=== PATIENT | female | born 1960 | race Two or more races ===

== ENCOUNTER 2022-10-05 22:59 | Inpatient (IN) | payer OTHER ==
[~2022-10-05] VITALS: Ht 157.5 cm; Wt 55.3 kg
--- NOTE | 2022-10-05 23:10 | NUR ---
COVID SWAB COLLECTED
[2022-10-05] MEDS ORDERED: ALBUTEROL FS 2.5 MG/3 ML VIAL.NEB ONE ×2 (23:12→23:21)
[2022-10-05] MEDS ORDERED: IPRATROPIUM NEB FS 0.5 MG/2.5 ML AMPUL.NEB ONE ×2 (23:12→23:21)
--- NOTE | 2022-10-05 23:13 | NUR ---
PT KAN; TAKEN OFF HOSPICE. C/O SOB SAT IN MID 70S. PLACED IN BED 8 ON WASTE SALVAGER AND PULSE OX. ESTABLISHED 22G RH, BLOOD WORK COLLECTED, SENT TO LAB. AT BEDSIDE. PT PLACED ON BIPAP. FLUIDS INITIATED. COOLING MEASURES INITIATED DUE TO TEMP 104. WILL RECHECK TEMP SOON. DAUGHTER SPOKE TO PT REGARDING PLAN OF CARE. PT WILL BE DNR/DNI. AWAITING FURTHER ORDERS.
--- NOTE | 2022-10-05 23:18 | NUR ---
FLU SWAB COLLECTED
[2022-10-05] MEDS ORDERED: methylPREDNISolone SOD SUCC 125 MG/2ML VIAL ONE (23:19)
[2022-10-05] MEDS ORDERED: IV LR 1000 ML 1,000 ML BAG IV ONE (23:30)
[2022-10-05] MEDS ORDERED: ALBUTEROL FS 2.5 MG/3 ML VIAL.NEB CONTNEB ONE (23:30)
[2022-10-05] MEDS ORDERED: ACETAMINOPHEN 650 MG/SUPP.RECT RC ONE ×2 (23:30)
[2022-10-05] MEDS ORDERED: IPRATROPIUM NEB FS 0.5 MG/2.5 ML AMPUL.NEB NEB ONE (23:30)
[2022-10-05] MEDS ORDERED: PIPERACILLIN /TAZOBACTAM 3.375 G in IV D5W 50 ML IV ONE (23:30)
[2022-10-05] MEDS ORDERED: methylPREDNISolone SOD SUCC 125 MG/2ML VIAL IV ONE (23:30)
[2022-10-05] MEDS ORDERED: PIPERACILLIN /TAZOBACTAM 3.375 G VIAL IV ONE (23:56)
--- NOTE | 2022-10-05 23:58 | NUR ---
RT NOTE PT BROUGHT IN FOR SOB AND HYPOXIA. PT WAS CONGESTED. PT SX'D AND PLACED ON BIPAP 01/02 100% RR 24. CONT NEB GIVEN. PT IS DNR/DNI. Addendum: 10/06/22 at 0000 by NAJMA KENDRICK RT Amended: Links added.
[2022-10-06 00:13] LABS: BILIRUBIN,URINE NEGATIVE (NEGATIVE); COLOR,URINE YELLOW (YELLOW); LEUKOCYTE ESTERASE ,URINE 3+ (NEGATIVE); NITRITE, URINE NEGATIVE (NEGATIVE); PROTEIN,URINE 2+ mg/dl (NEGATIVE); UGLUCOSE NEGATIVE (NEGATIVE); UROBILINOGEN,URINE 0.2 EU/dL (0.2)
[2022-10-06 00:30] LABS: BASOPHILS % (AUTO) 0.1 % (0.0-2.0); MEAN CORPUSCULAR VOLUME 94 fL (82-100)
[2022-10-06 00:32] LABS: EOSINOPHILS % (AUTO) 0.1 % (0.0-6.0); HEMATOCRIT 31 % (33-45); HEMOGLOBIN 9.4 g/dL (11.5-14.8); LYMPHOCYTES # (AUTO) 1.4 K/uL (0.8-4.8); LYMPHOCYTES % (AUTO) 12.7 % (20.0-44.0); MEAN CORPUSCULAR HGB CONC 31 g/dl (31.0-36.0); MONOCYTES # (AUTO) 0.8 K/uL (0.1-1.30); NEUTROPHILS # (AUTO) 8.9 K/uL (1.8-8.9); NEUTROPHILS % (AUTO) 80.1 % (43.0-81.0); PLATELET COUNT (AUTO) 175 K/uL (150-450); WHITE BLOOD COUNT (AUTO) 11.1 K/uL (4.3-11.0)
[2022-10-06 00:44] LABS: ALANINE AMINOTRANSFERASE 23 U/L (12-78); ALBUMIN 2.5 g/dL (3.4-5.0); ALKALINE PHOSPHATASE 109 U/L (46-116); ASPARTATE AMINOTRANSFERASE 56 U/L (15-37); BILIRUBIN,DIRECT 0.2 mg/dL (0.0-0.2); BILIRUBIN,TOTAL 0.4 mg/dL (0.2-1.0); CALCIUM, SERUM 11.2 mg/dL (8.5-10.1); CARBON DIOXIDE 21 mmol/L (21-32); CHLORIDE 109 mmol/L (98-107); CREATININE 2.1 mg/dL (0.6-1.3); GLUCOSE 161 mg/dL (74-106); POTASSIUM 5.4 mmol/L (3.5-5.1); SODIUM SERUM 144 mmol/L (136-145); TOTAL PROTEIN, SERUM 7.9 g/dL (6.4-8.2)
[2022-10-06 00:48] LABS: UREA NITROGEN, BLOOD 84 mg/dL (7-18)
[2022-10-06 01:02] LABS: BACTERIA,URINE Many /HPF (None Seen); SQUAMOUS EPITHELIAL CELL,UR Few /HPF (None Seen); WBC,URINE 21-50 /HPF (0-3)
[2022-10-06 01:21] LABS: ABG BASE EXCESS -4.2 mmol/L; ABG OXYGEN SATURATION 97.9 % (92.0-98.5); ABG PCO2 27.5 mmHg (35.0-45.0); ABG PH 7.451 (7.350-7.450); ABG PO2 114.1 mmHg (75.0-100.0); AaDO2 571.4 mmHg; COHb 0.3 % (0.5-1.5); MetHb 0.3 % (0.0-1.5); O2Hb 97.3 % (94.0-97.0); SITE, ABG Left Radial; VENT MODE, BG ST 15/5 24 100%
[2022-10-06] MEDS ORDERED: DOXYCYCLINE 100 MG in IV D5W 100 ML IV STA (01:38)
--- NOTE | 2022-10-06 01:50 | NUR ---
REPORT GIVEN TO JUDY SMITH FOR JOSE
[2022-10-06] MEDS ORDERED: DOXYCYCLINE 100 MG VIAL ONE (01:56)
[2022-10-06] MEDS ORDERED: ONDANSETRON HCL/PF 4 MG/2 ML VIAL IVP PRN (02:00)
[2022-10-06] MEDS ORDERED: Z GUARD REMEDY 4 OZ OINT TP PRN (02:00)
[2022-10-06] MEDS ORDERED: DEXTROSE 50%-WATER 50 ML DISP.SYRIN IV PRN (02:00)
[2022-10-06 02:10] VITALS: BP 95/59
[2022-10-06] MEDS ORDERED: CEFEPIME 1 GM in IV D5W 50 ML IV ONE (02:30)
--- NOTE | 2022-10-06 02:30 | NUR ---
ADMISSION 61 y/o Female, nonverbal. Skin checked done, skin photo placed in the chart. Admission question completed with Meldy/daughter at bedside. Patient on BIPAP. DNR/DNI code status. Fall/skin/aspiration precaution maintained.
[2022-10-06] MEDS ORDERED: VANCOMYCIN 1 GM in IV D5W 250ml IV ONE (03:00)
[2022-10-06] MEDS ORDERED: CEFEPIME 1 GM VIAL ONE (03:26)
[2022-10-06] MEDS ORDERED: VANCOMYCIN 1 GM VIAL ONE (03:29)
[2022-10-06 05:05] VITALS: BP 95/59
--- NOTE | 2022-10-06 05:22 | NUR ---
CRITICAL LAB Lactic Acid elevated 4.8. Notified MEDICAL ASSISTANT PRN Lucas Gray with no new orders at this time. Patient on IVF infusing. Received 1L LR prior transferred to unit.
--- NOTE | 2022-10-06 05:40 | NUR ---
IV PERIPHERAL LINE INFILTRATED Right hand IV line infiltrated, unable to insert new IV peripheral line, attempted x3 - unsuccessful. Another RN attempted as well with vein finder device with no luck. Charge Nurse Samantha mcadams, informed mix house operator. RN from ER will try. Notified LINER WORKER Isaac. MIDLINE to be inserted today.
[2022-10-06] MEDS: GLUCERNA 1.2 1,000 ML BOTTLE GT SCH (05:52)
[2022-10-06] MEDS: BLOOD SUGAR DIAGNOSTIC 1 EACH STRIP IN SCH ×4 (06:34→23:47)
[2022-10-06] MEDS: INSULIN REGULAR, HUMAN 100 UNIT/ML 3 ML VIAL SQ PRN ×3 (06:36→17:38)
--- NOTE | 2022-10-06 07:22 | NUR ---
END OF SHIFT REPORT Patient in bed, non communicative. Sinus rhythm in the Tele monitor HR 79. Patient on BIPAP, setting per RT. Oxygenation 100's. Gtube feeding at 70ml/hr, maintained upright posture. Temp curved down 98F. Tuttle cath care, output 400ml yellow cloudy with sediments. Patient has no IV line at this time, Charge nurse Samantha informed RENE Zavala. Will have MIDLINE insertion today. Wound consult. Fall/skin/aspiration precaution maintained. Endorsed to LUIS Abarca.
[2022-10-06] MEDS: ALBUTEROL FS 2.5 MG/3 ML VIAL.NEB NEB SCH ×5 (07:36→23:32)
[2022-10-06] MEDS: IPRATROPIUM NEB FS 0.5 MG/2.5 ML AMPUL.NEB NEB SCH ×5 (07:36→23:32)
[2022-10-06 07:47] LABS: ALBUMIN 2.3 g/dL (3.4-5.0); BILIRUBIN,TOTAL 0.4 mg/dL (0.2-1.0); CALCIUM, SERUM 9.9 mg/dL (8.5-10.1); CREATININE 2.2 mg/dL (0.6-1.3); MAGNESIUM 2.9 mg/dL (1.8-2.4); POTASSIUM 4.6 mmol/L (3.5-5.1); TOTAL PROTEIN, SERUM 6.1 g/dL (6.4-8.2)
--- NOTE | 2022-10-06 07:52 | NUR ---
cara rn note Patient in bed, . Sinus rhythm in the Tele monitor HR85 . Patient on BIPAP, setting per RT. Oxygenation 95's. Gtube feeding at 70ml/hr, maintained upright posture.with . Tuttle cath to gravity with yellow color cloudy with sediments. Patient has no IV line at this time, nursing supervisor boiler repair notified to insert mid line safety precaution maintained. will monitor
[2022-10-06 08:03] LABS: THYROID STIMULATING HORMONE 1.452 uIU/mL (0.358-3.74)
[2022-10-06] MEDS: methylPREDNISolone SOD SUCC 125 MG/2ML VIAL IV SCH ×2 (08:34→15:36)
[2022-10-06] MEDS: HEPARIN SODIUM, PORCINE 5000 UNITS/1 ML VIAL SQ SCH ×2 (08:35→21:05)
[2022-10-06] MEDS: IV 1/2NS 1000 ML 1,000 ML IV PRN (08:42)
[2022-10-06] MEDS ORDERED: ASCO-352 GT (09:09)
[2022-10-06] MEDS ORDERED: CLOP75TA15 PO (09:09)
[2022-10-06] MEDS ORDERED: ALBU2.5V38 IH (09:09)
[2022-10-06] MEDS ORDERED: LEVO75TA7 GT (09:09)
[2022-10-06] MEDS ORDERED: METO50TA16 GT (09:09)
[2022-10-06] MEDS ORDERED: NUT.237L30 GT (09:09)
[2022-10-06] MEDS ORDERED: POVI3780 TP (09:09)
[2022-10-06] MEDS ORDERED: MAGN400O6 GT (09:09)
[2022-10-06] MEDS ORDERED: BISA10SU11 RC (09:09)
[2022-10-06] MEDS ORDERED: ACET-868 PO (09:09)
[2022-10-06] MEDS ORDERED: ISOS30TA86 GT (09:09)
[2022-10-06 09:15] VITALS: BP 97/63
--- NOTE | 2022-10-06 09:19 | NUR ---
cara rn note new hl on rt hand inserted diego 20 with good blood return
[2022-10-06 09:20] LABS: BASOPHILS % (AUTO) 0.1 % (0.0-2.0); EOSINOPHILS % (AUTO) 0.2 % (0.0-6.0); HEMATOCRIT 28 % (33-45); HEMOGLOBIN 8.7 g/dL (11.5-14.8); LYMPHOCYTES # (AUTO) 0.8 K/uL (0.8-4.8); LYMPHOCYTES % (AUTO) 6.5 % (20.0-44.0); MEAN CORPUSCULAR HGB CONC 31 g/dl (31.0-36.0); MEAN CORPUSCULAR VOLUME 92 fL (82-100); MONOCYTES # (AUTO) 0.3 K/uL (0.1-1.30); MONOCYTES % (AUTO) 2.6 % (2.0-12.0); NEUTROPHILS # (AUTO) 11.7 K/uL (1.8-8.9); NEUTROPHILS % (AUTO) 90.6 % (43.0-81.0); PLATELET COUNT (AUTO) 143 K/uL (150-450); RED BLOOD CELL COUNT(AUTO) 3.06 MIL/uL (4.0-5.2); WHITE BLOOD COUNT (AUTO) 12.9 K/uL (4.3-11.0)
[2022-10-06 09:52] LABS: BAND % (MANUAL) 13 % (0.0-5.0); LYMPHOCYTES % (MANUAL) 17 % (16-48); MONOCYTES % (MANUAL) 5 % (0-11.0); NEUTROPHILS % (MANUAL) 65 (42-76)
[2022-10-06 09:59] LABS: BAND % (MANUAL) 13 % (0.0-5.0); LYMPHOCYTES % (MANUAL) 17 % (16-48); MONOCYTES % (MANUAL) 5 % (0-11.0); NEUTROPHILS % (MANUAL) 65 (42-76)
--- NOTE | 2022-10-06 10:17 | NUR ---
cara rn note reported to dr Schaeffer supply chain specialist that patient still has labored respiration, on bipap setting as ordered patent dnr\dni status
--- NOTE | 2022-10-06 10:30 | NUR ---
cara rn note spoke with son clarified code status still dnr\dni status .will cont to monitor
[2022-10-06 12:12] VITALS: BP 101/62
--- NOTE | 2022-10-06 12:59 | NUR ---
cara rn note dr siddiqi at bedside updated patient condition, ,dr weaver stated that will call family to update patint condition
--- NOTE | 2022-10-06 15:17 | NUR ---
BLOSSOM RN NOTE UA COLLECTED ORDERED ,KEEP CLEAN DRY, FAMILY AT BEDSIDE
[2022-10-06 16:18] VITALS: BP 114/58
--- NOTE | 2022-10-06 16:59 | NUR ---
cara rn note mid line nurse will came at 8 pm ,will insert mid line , patient is very hard stick
[2022-10-06] MEDS: methylPREDNISolone SOD SUCC 40 MG/ML VIAL IV SCH (17:03)
--- NOTE | 2022-10-06 17:49 | NUR ---
cara rn note rt at bedside suction done , all needs attended, cont on Bipap machine at this time ,saturation 99%, will cont to monitor ,family at bedside unable to infuse ivf ,hl is nor flushing well ,called nursing transmission supervisor notified that not able to insert new hl ,stated that mid line nurse will come at 8 pm will insert mid line will f\u
--- NOTE | 2022-10-06 18:36 | NUR ---
BLOSSOM RN NOTE PATIENT IN BED ,NONVERBALLY RESPONSIVE , ON BIPAP SETTING ORDERED, SATURATION AT THIS TIME 98% ,FAMILY AT BEDSIDE, ON TELE MONITOR SR HR 89, WITH G TUBE FEEDING ORDERED KEEP HOB ELEVATED AT ALL TIME,HOLD IVF AT THIS TIME,AWAITING FOR MIDLINE NURSE TO INSERT MID LINE , BED IN LOWEST AND LOCKED POSITION , CALL LIGHT WITHIN REACH , SAFETY MEASURE IMPLEMENTED ,WILL CONT TO MONITOR CLOSELY
[2022-10-06 18:53] LABS: BILIRUBIN,URINE NEGATIVE (NEGATIVE); COLOR,URINE YELLOW (YELLOW); LEUKOCYTE ESTERASE ,URINE 1+ (NEGATIVE); NITRITE, URINE NEGATIVE (NEGATIVE); PROTEIN,URINE 1+ mg/dl (NEGATIVE); UGLUCOSE NEGATIVE (NEGATIVE); UROBILINOGEN,URINE 0.2 EU/dL (0.2)
[2022-10-06 18:55] LABS: CREATININE, URINE 45.2 MG/DL (30.0-125.0)
[2022-10-06 19:28] LABS: BACTERIA,URINE Moderate /HPF (None Seen)
[2022-10-06 19:29] LABS: COARSE GRANULAR CASTS,URINE Few /LPF (None Seen); SQUAMOUS EPITHELIAL CELL,UR Few /HPF (None Seen)
[2022-10-06 20:00] VITALS: BP 101/43
--- NOTE | 2022-10-06 20:00 | NUR ---
RN BLOSSOM NOTE RECEIVED PT IN BED, OBTUNDED, ON BIPAP AT THIS TIME, TOLERATING THE SETTINGS WELL, NO SOB, NO DISTRESS OR DISCOMFORT NOTED, NO S/SX OF PAIN, F/C INTACT AND PATENT, DRAINING YELLOWISH COLOR URINE. WAITING FOR MIDLINE NURSE TO COME FOR INSERTION OF NEW MIDLINE. GTUBE FEEDING GLUCERNA INFUSING @ 70 ML/HR, 0 ML RESIDUAL NOTED. ON TELE SR HR 82. REPOSITIONED HER FOR COMFORT AND SKIN MANAGEMENT. KEPT HER CLEAN AND DRY, SIDE RAILS UP X3, HOB ELEVATED, CALL LIGHT WITHIN REACH, VSS, WILL CONTINUE TO MONITOR.
--- NOTE | 2022-10-06 20:05 | NUR ---
BLOSSOM RN NOTE RIGHT HAND SALINE LOCK IS INFILTRATED. D/C THE LINE, WAITING FOR MIDLINE INSERTION.
--- NOTE | 2022-10-06 20:30 | NUR ---
BLOSSOM RN NOTE MIDLINE NURSE ARRIVED AND INSERTED #18G MIDLINE DANN WITH GOOD BLOOD RETURN. RESUME THE IVF 1/2 NS @ 75 ML/HR. NO S/SX OF INFILTRATION NOTED.
[2022-10-06] MEDS ORDERED: CEFEPIME 2 GM in IV D5W 100 ML IV SCH (21:00)
[2022-10-07] VITALS: BP 99/53
[2022-10-07] MEDS: INSULIN REGULAR, HUMAN 100 UNIT/ML 3 ML VIAL SQ PRN ×4 (00:30→17:58)
[2022-10-07] MEDS: ALBUTEROL FS 2.5 MG/3 ML VIAL.NEB NEB SCH ×6 (03:20→23:30)
[2022-10-07] MEDS: IPRATROPIUM NEB FS 0.5 MG/2.5 ML AMPUL.NEB NEB SCH ×6 (03:21→23:30)
[2022-10-07 04:00] VITALS: BP 100/37
[2022-10-07] MEDS: IV 1/2NS 1000 ML 1,000 ML IV PRN ×2 (04:20→16:33)
[2022-10-07] MEDS: GLUCERNA 1.2 1,000 ML BOTTLE GT SCH ×2 (04:20→16:36)
[2022-10-07] MEDS ORDERED: VANCOMYCIN 0.75 GM in IV D5W 250 ML IV SCH (06:00)
[2022-10-07] MEDS: BLOOD SUGAR DIAGNOSTIC 1 EACH STRIP IN SCH ×3 (06:06→17:57)
[2022-10-07 06:13] LABS: CALCIUM, SERUM 10.6 mg/dL (8.5-10.1); CREATININE 1.4 mg/dL (0.6-1.3); POTASSIUM 3.1 mmol/L (3.5-5.1)
--- NOTE | 2022-10-07 06:43 | NUR ---
BLOSSOM RN NOTE PT IN BED OBTUNDED. NO DISTRESS OR DISCOMFORT NOTED. NO S/S OF PAIN NOTED. REMAIN ON BIPAP. TOLERATING WELL. ON TELE SR HR 80 IVF 1/2 NS INFUSING AT 75 ML/HR, NO S/S OF INFILTRATION NOTED. KGTF INFUSING WELL 0 ML RESIDUAL NOTED. F/C DRAINING WELL YELLOWISH COLOR URINE. KEPT HOB ELEVATED. REPOSITION HER Q2H, KEPT HER DRY AND CLEAN. SIDE RAILS UP X 3 AND CALL LIGHT WITHIN REACH. VSS. WILL ENDORSE TO DAY SHIFT NURSE FOR CONTINUE TO CARE.
[2022-10-07 08:00] VITALS: BP 80/47
[2022-10-07] MEDS: methylPREDNISolone SOD SUCC 40 MG/ML VIAL IV SCH (10:40)
[2022-10-07] MEDS: HEPARIN SODIUM, PORCINE 5000 UNITS/1 ML VIAL SQ SCH ×2 (10:44→21:18)
[2022-10-07 12:00] VITALS: BP 86/51
[2022-10-07] MEDS ORDERED: POTASSIUM CHLORIDE 20 MEQ POWDER PACKET GT ONE (12:00)
--- NOTE | 2022-10-07 12:07 | NUR ---
SS Note: GRACE was notified by Zara CAMPO that the pt.'s daughter,Sammy Velasquez is interested in resources. GRACE spoke with Trisha Oswaldo [phone] and per her request, GRACE emailed , cremation and burial resources to her at [email or web address]. GRACE addressed Trisha's questions. Trisha stated she will misti resources to shop around and make arrangements. Noted.
[2022-10-07] MEDS: CEFEPIME 2 GM in IV D5W 100 ML IV SCH ×2 (12:49→22:37)
[2022-10-07 16:00] VITALS: BP 107/59
--- NOTE | 2022-10-07 17:57 | NUR ---
RT ABG not requested by MD Schaeffer
--- NOTE | 2022-10-07 18:07 | NUR ---
RN NOTE FAMILY REQUESTS TO REMOVE BIPAP MACHINE. PATIENT IS NOW ON 15L NON REBREATHER MASK, 02 SAT OF 97%. NOTIFIED RT. CHARGE NURSE AWARE.
--- NOTE | 2022-10-07 18:15 | NUR ---
RT BIPAP removed per family request. Pt currently on 15 LPM NRB. LUIS Armando at bedside. Charge nurse Kae mcadams. Pt Sp2 Addendum: 10/07/22 at 1817 by SADIA GALARZA RT Pt Sp02 97% at this time.
--- NOTE | 2022-10-07 19:15 | NUR ---
RN CLOSING NOTE PT IN BED OBTUNDED. NO DISTRESS OR DISCOMFORT NOTED. NO S/S OF PAIN NOTED. BREATHING ON NON BREATHER AT 15L, 02 SAT 99%. ON TELE SR HR 80 IVF 1/2 NS INFUSING AT 75 ML/HR, NO S/S OF INFILTRATION NOTED. F/C DRAINING WELL YELLOWISH COLOR URINE. G-TUBE FEEDING RUNNING AT 70ML/HR, TOLERATING WELL. KEPT HOB ELEVATED. REPOSITION HER Q2H, KEPT HER DRY AND CLEAN. SIDE RAILS UP X 3 AND CALL LIGHT WITHIN REACH. VSS. WILL ENDORSE TO WEDDING COORDINATOR NURSE FOR CONTINUE TO CARE. PATIENT FAMILY AT BEDSIDE. Addendum: 10/07/22 at 1922 by BARBARA MORAN RN TELE READING ST HR 101.
--- NOTE | 2022-10-07 19:30 | NUR ---
RN NOTE RECEIVED PT IN BED, AWAKE BUT NON VERBAL. FAMILY ON BED SIDE. CURRENTLY ON NRB @ 15L, TOLERATING WELL WITH NO S/SX OF ACUTE RESPI DISTRESS NOTED AT THIS TIME. NO SOB, BREATHING IS EVEN AND UNLABORED.TELE MONITOR READ ST, WITH HR IN THE 100s. IV ACCES IN DANN ML 18g INFUSING 0.45% NS @ 75 CC/HR, PATENT AND INTACT. BOTH ARMS CONTRACTED PER ASSESSMENT. GTF RUNNING GLUCERNA @ 70 CC/HR, 20 CC RESIDUAL NOTED. FC IN PLACE DRAINING YELLOW URINE BY GRAVITY. ALL SAFETY MEASURES IN PLACE: BED LOCKED IN LOW POSITION, BED ALARM ON. SR UP X2, CALL LIGHT WITHIN REACH. WILL CONTINUE TO MONITOR PT.
--- NOTE | 2022-10-07 19:49 | NUR ---
Pt to remain off BiPAP per family request. Family states it is to let pt be comfortable. Found on NRB 15L 100%. Q4 neb tx given.
[2022-10-07 20:00] VITALS: BP 120/64
--- NOTE | 2022-10-07 20:15 | NUR ---
Per family request, remaining Q4 txs to not be given. Pt desats to 88-89%, and family would like to keep pt on NRB 100% throughout the night.
[2022-10-07] MEDS: MUPIROCIN OINT 2% 22 GM TUBE NS SCH (20:50)
[2022-10-07] MEDS: THERAHONEY GEL 1.5 OZ TUBE TP SCH (21:46)
[2022-10-08] VITALS: BP 116/62
[2022-10-08] MEDS: BLOOD SUGAR DIAGNOSTIC 1 EACH STRIP IN SCH ×4 (00:21→17:31)
[2022-10-08] MEDS: INSULIN REGULAR, HUMAN 100 UNIT/ML 3 ML VIAL SQ PRN ×4 (00:22→17:33)
[2022-10-08] MEDS: ALBUTEROL FS 2.5 MG/3 ML VIAL.NEB NEB SCH ×6 (03:30→23:24)
[2022-10-08] MEDS: IPRATROPIUM NEB FS 0.5 MG/2.5 ML AMPUL.NEB NEB SCH ×6 (03:30→23:24)
[2022-10-08 04:00] VITALS: BP 115/62
[2022-10-08] MEDS: VANCOMYCIN 1 GM in IV D5W 250 ML IV SCH (05:11)
[2022-10-08 05:46] LABS: EOSINOPHILS % (AUTO) 0.1 % (0.0-6.0); HEMATOCRIT 23 % (33-45); LYMPHOCYTES # (AUTO) 0.6 K/uL (0.8-4.8); LYMPHOCYTES % (AUTO) 5.1 % (20.0-44.0); MEAN CORPUSCULAR HGB CONC 31 g/dl (31.0-36.0); MEAN CORPUSCULAR VOLUME 95 fL (82-100); MONOCYTES # (AUTO) 0.4 K/uL (0.1-1.30); MONOCYTES % (AUTO) 3.6 % (2.0-12.0); NEUTROPHILS # (AUTO) 10.3 K/uL (1.8-8.9); NEUTROPHILS % (AUTO) 91.2 % (43.0-81.0); PLATELET COUNT (AUTO) 111 K/uL (150-450); RED BLOOD CELL COUNT(AUTO) 2.39 MIL/uL (4.0-5.2); WHITE BLOOD COUNT (AUTO) 11.3 K/uL (4.3-11.0)
[2022-10-08 05:51] LABS: HEMOGLOBIN 6.9 g/dL (11.5-14.8)
--- NOTE | 2022-10-08 06:35 | NUR ---
RN NOTE PT REMAINED NON VERBAL, ALL VS STABLE. DUE MEDS GIVEN. NEEDS ATTENDED TO. WILL ENDORSE TO AM SHIFT NURSE FOR JOSE.
[2022-10-08 06:40] LABS: CALCIUM, SERUM 9.6 mg/dL (8.5-10.1); CREATININE 0.9 mg/dL (0.6-1.3); MAGNESIUM 2.2 mg/dL (1.8-2.4); PHOSPHORUS 1.1 mg/dL (2.5-4.9); POTASSIUM 3.6 mmol/L (3.5-5.1)
--- NOTE | 2022-10-08 06:48 | NUR ---
RN NOTE RECEIVED CRITICAL LAB REPORT FOR HGB 6.9 MD MADE AWARE. PRBC 1 UNIT ORDERED. PUT ORDER, AND ENDORSED TO AM SHIFT NURSE.
--- NOTE | 2022-10-08 07:15 | NUR ---
RN OPEN NOTE PT IN BED OBTUNDED. NO DISTRESS OR DISCOMFORT NOTED. NO S/S OF PAIN NOTED. BREATHING ON NON BREATHER AT 15L, 02 SAT 99%. ON TELE SR HR 80. PATIENT HAS IV ACCESS ON DANN ML , INTACT AND FLUSHES WELL, IVF 1/2 NS INFUSING AT 75 ML/HR, NO S/S OF INFILTRATION NOTED. F/C DRAINING WELL YELLOWISH COLOR URINE. G-TUBE FEEDING RUNNING AT 70ML/HR, TOLERATING WELL. WILL KEET HOB ELEVATED. WILL REPOSITION HER Q2H, KEET HER DRY AND CLEAN. SIDE RAILS UP X 3 AND CALL LIGHT WITHIN REACH. BED SIDE RAILS ARE UP . WILL CONTINUE TO MONITOR AND FALLOW POC
[2022-10-08] MEDS: GLUCERNA 1.2 1,000 ML BOTTLE GT SCH (07:18)
[2022-10-08] MEDS: IV 1/2NS 1000 ML 1,000 ML IV PRN (07:40)
[2022-10-08 08:00] VITALS: BP 148/93
[2022-10-08] MEDS: HEPARIN SODIUM, PORCINE 5000 UNITS/1 ML VIAL SQ SCH (09:00)
[2022-10-08] MEDS: methylPREDNISolone SOD SUCC 40 MG/ML VIAL IV SCH (09:11)
[2022-10-08] MEDS: CEFEPIME 2 GM in IV D5W 100 ML IV SCH ×2 (09:12→20:48)
[2022-10-08] MEDS ORDERED: MORPHINE SULFATE INJ 2 MG/ML DISP.SYRIN IV PRN (09:30)
[2022-10-08] MEDS: MUPIROCIN OINT 2% 22 GM TUBE NS SCH ×2 (09:33→20:49)
[2022-10-08] MEDS: THERAHONEY GEL 1.5 OZ TUBE TP SCH (09:34)
[2022-10-08] MEDS: MORPHINE SULFATE INJ 4 MG/ML DISP.SYRIN IV PRN ×2 (11:56→18:40)
--- NOTE | 2022-10-08 12:15 | NUR ---
RT NOTE PLACED PT ON VENTURI MASK 15L, 50%. DESATURATION NOTED. PATIENT UNABLE TO TOLERATE VENTURI MASK AT THIS TIME. SOON RN NOTIFIED AND AWARE. PLACED PATIENT BACK ON NRB @15LPM. WILL CONTINUE TO MONITOR.
[2022-10-08 13:03] VITALS: BP 115/72
[2022-10-08] MEDS: POTASSIUM PHOSPHATE MM 7.5 MMOL in IV NS 0.9% 100 ML IV SCH ×4 (14:49→23:02)
[2022-10-08 16:15] VITALS: BP 115/72
--- NOTE | 2022-10-08 18:45 | NUR ---
RN CLOSING NOTE PT IN BED OBTUNDED. NO DISTRESS OR DISCOMFORT NOTED. NO S/S OF PAIN NOTED. BREATHING ON NON BREATHER AT 15L, 02 SAT 99%. ON TELE SR HR 87. PATIENT HAS IV ACCESS ON DANN ML , INTACT AND FLUSHES WELL, IVF 1/2 NS INFUSING AT 75 ML/HR, NO S/S OF INFILTRATION NOTED. F/C DRAINING WELL YELLOWISH COLOR URINE. G-TUBE FEEDING RUNNING AT 70ML/HR, TOLERATING WELL. KEPT HOB ELEVATED. WILL REPOSITION HER Q2H, KEPT HER DRY AND CLEAN. DR GARDNER PLACED PATIENT ON COMFORT CARE , NO BLOOD TRANSFUSION , BUT CONTINUE O2 , AND ANTIBIOTIC , IV HYDRATION PER FAMILY REQUEST .SIDE RAILS UP X 3 AND CALL LIGHT WITHIN REACH. BED SIDE RAILS ARE UP . WILL ENDORSE TEST AND TURN UP TECHNICIAN NURSE TO FALLOW POC
--- NOTE | 2022-10-08 19:15 | NUR ---
ARSON INVESTIGATOR OPENING NOTES RECEIVED PT IN BED OBTUNDED. NO DISTRESS OR DISCOMFORT NOTED. NO S/S OF PAIN NOTED. BREATHING ON NON BREATHER AT 15L, 02 SAT 99%. ON TELE SR HR 87. PATIENT HAS IV ACCESS ON DANN ML , INTACT AND FLUSHES WELL, IVF 1/2 NS INFUSING AT 75 ML/HR, NO S/S OF INFILTRATION NOTED. F/C DRAINING WELL YELLOWISH COLOR URINE. G-TUBE FEEDING RUNNING AT 70ML/HR, TOLERATING WELL. HOB ELEVATED. WILL REPOSITION HER Q2H AND WILL KEEP HER DRY AND CLEAN. DR GARDNER PLACED PATIENT ON COMFORT CARE PER ENDORSEMENT FROM DAY SHIFT NURSE, NO BLOOD TRANSFUSION , BUT CONTINUE O2 AND ANTIBIOTIC, IV HYDRATION PER FAMILY REQUEST. SIDE RAILS UP X3 AND CALL LIGHT WITHIN REACH. BED SIDE RAILS ARE UP. WILL CONTINUE TO MONITOR AND ASSIST.
[2022-10-08 20:00] VITALS: BP 115/64
--- NOTE | 2022-10-08 21:14 | NUR ---
RT Pt family at bedside, daughter informed she wants to refuse the neb tx since it causes pt to desaturate quickly. RN is aware.
[2022-10-09] VITALS: BP 112/70
[2022-10-09] MEDS: BLOOD SUGAR DIAGNOSTIC 1 EACH STRIP IN SCH ×4 (00:07→18:11)
[2022-10-09] MEDS: INSULIN REGULAR, HUMAN 100 UNIT/ML 3 ML VIAL SQ PRN ×4 (00:12→18:17)
[2022-10-09] MEDS: GLUCERNA 1.2 1,000 ML BOTTLE GT SCH ×2 (01:15→12:52)
[2022-10-09] MEDS: IV 1/2NS 1000 ML 1,000 ML IV PRN ×2 (02:05→18:16)
[2022-10-09] MEDS: MORPHINE SULFATE INJ 4 MG/ML DISP.SYRIN IV PRN ×3 (02:51→14:53)
[2022-10-09 03:11] LABS: BAND % (MANUAL) 6 % (0.0-5.0); BASOPHILS % (MANUAL) 0 % (0.0-2.0); EOSINOPHILS % (MANUAL) 0 % (0-4); LYMPHOCYTES % (MANUAL) 6 % (16-48); MONOCYTES % (MANUAL) 4 % (0-11.0); NEUTROPHILS % (MANUAL) 84 (42-76)
[2022-10-09] MEDS: ALBUTEROL FS 2.5 MG/3 ML VIAL.NEB NEB SCH ×6 (03:30→23:30)
[2022-10-09 04:00] VITALS: BP 109/67
[2022-10-09] MEDS: IPRATROPIUM NEB FS 0.5 MG/2.5 ML AMPUL.NEB NEB SCH ×6 (04:07→23:30)
[2022-10-09] MEDS: VANCOMYCIN 1 GM in IV D5W 250 ML IV SCH (05:47)
--- NOTE | 2022-10-09 07:30 | NUR ---
FORMULATION CHEMIST CLOSING NOTES PT IN BED OBTUNDED. NO DISTRESS OR DISCOMFORT NOTED. NO S/S OF PAIN NOTED. BREATHING ON NON BREATHER AT 15L, 02 SAT 99%. ON TELE ST 109 WITH ELEVATED P WAVES. PATIENT HAS IV ACCESS ON DANN ML , INTACT AND FLUSHES WELL, IVF 1/2 NS INFUSING AT 75 ML/HR, NO S/S OF INFILTRATION NOTED. F/C DRAINING WELL YELLOWISH COLOR URINE. G-TUBE FEEDING RUNNING AT 70ML/HR, TOLERATING WELL. HOB ELEVATED. WILL REPOSITION HER Q2H AND WILL KEEP HER DRY AND CLEAN. TRANSITIONING TO COMFORT CARE PER DR GARDNER CONVERSATION WITH DAUGHTER: NO BLOOD TRANSFUSION , BUT CONTINUE O2 AND ANTIBIOTIC, IV HYDRATION PER FAMILY REQUEST. SIDE RAILS UP X3 AND CALL LIGHT WITHIN REACH. BED SIDE RAILS ARE UP. ALL CARE PROVIDED AND MEDS TOLERATED WELL. WILL ENDORSE JOSE TO DAY SHIFT NURSE.
--- NOTE | 2022-10-09 07:40 | NUR ---
RN Note Received patient in bed. GCS [id number]. site monitor showed SR 108/min. Not in respiratory distress. Right UA midline is dry and intact, with 1/2NS running at 75mL/hr. Call monteiro is placed within reach. Bed is locked and placed in the lowest position. All safety measures have been implemented. Will continue monitoring and care.
[2022-10-09 08:00] VITALS: BP 131/79
[2022-10-09] MEDS: MUPIROCIN OINT 2% 22 GM TUBE NS SCH ×2 (08:28→21:14)
[2022-10-09] MEDS: methylPREDNISolone SOD SUCC 40 MG/ML VIAL IV SCH (08:28)
[2022-10-09] MEDS: CEFEPIME 2 GM in IV D5W 100 ML IV SCH ×2 (08:28→20:53)
[2022-10-09] MEDS: THERAHONEY GEL 1.5 OZ TUBE TP SCH (08:29)
[2022-10-09 12:00] VITALS: BP 129/77
[2022-10-09 16:00] VITALS: BP 105/62
--- NOTE | 2022-10-09 19:30 | NUR ---
PUBLIC ACCOUNTANT OPENING NOTE RECEIVED PT IN BED, OBTUNDED, RESPONSIVE TO TACTILE/PAIN STIMULI ONLY, NONVERBAL, EYES OPEN. ON NRB MASK @15LPM, NO SOB, NO ACUTE RESP DISTRESS. O2 SAT 94%. ON SINGLE NEEDLE TUFTING MACHINE OPERATOR. NO S/SX OF PAIN/DISCOMFORT AT THIS TIME. 0.45% NS @75ML/HR CURRENTLY INFUSING ON DANN ML, PATENT, CLEAN AND DRY. FC IN PLACED, PATENT DRAINING CLEAR YELLOW URINE. PT ON COMFORT MEASURES. SAFETY PRECAUTIONS IMPLEMENTED. WILL CONT POC.
[2022-10-09 20:00] VITALS: BP 103/51
[2022-10-10] VITALS: BP 101/70
--- NOTE | 2022-10-10 | NUR ---
PAPER PATTERN INSPECTOR NOTE BS: 148MG/DL, 2 UNITS OF REGULAR INSULIN GIVEN PER SLIDING SCALE ORDERED.
[2022-10-10] MEDS: BLOOD SUGAR DIAGNOSTIC 1 EACH STRIP IN SCH ×4 (00:18→17:39)
[2022-10-10] MEDS: INSULIN REGULAR, HUMAN 100 UNIT/ML 3 ML VIAL SQ PRN ×4 (00:20→17:47)
[2022-10-10] MEDS: ALBUTEROL FS 2.5 MG/3 ML VIAL.NEB NEB SCH ×5 (03:30→23:30)
[2022-10-10] MEDS: IPRATROPIUM NEB FS 0.5 MG/2.5 ML AMPUL.NEB NEB SCH ×5 (03:30→23:30)
[2022-10-10 04:00] VITALS: BP 100/79
--- NOTE | 2022-10-10 05:30 | NUR ---
FILM DEVELOPING MACHINE OPERATOR NOTE BS 108MG/DL. NO INSULIN COVERAGE NEEDED PER SLIDING SCALE ORDERED.
[2022-10-10] MEDS: GLUCERNA 1.2 1,000 ML BOTTLE GT SCH (05:38)
[2022-10-10 06:34] LABS: CALCIUM, SERUM 10.6 mg/dL (8.5-10.1); CREATININE 0.9 mg/dL (0.6-1.3); POTASSIUM 4.3 mmol/L (3.5-5.1)
--- NOTE | 2022-10-10 06:38 | NUR ---
AFTER SCHOOL PROGRAM TEACHER CLOSING NOTE PT IN BED, ASLEEP, EASILY AROUSABLE. RESPONSIVE TO TACTILE/PAIN STIMULI ONLY, NONVERBAL, OPENS EYES. ON NRB MASK @15LPM, LABORED BREATHING, NO ACUTE RESP DISTRESS. O2 SAT 94%. NO S/SX OF PAIN/DISCOMFORT AT THIS TIME. 0.45% NS @75ML/HR CURRENTLY INFUSING ON DANN ML, PATENT, CLEAN AND DRY. FC IN PLACED, PATENT DRAINING CLEAR YELLOW URINE. PT ON COMFORT MEASURES. SAFETY PRECAUTIONS IMPLEMENTED. ALL NEEDS ANTICIPATED, ALL DUE MEDICATIONS GIVEN ORDERED. WILL ENDORSE TO AM NURSE.
[2022-10-10] MEDS: VANCOMYCIN 1 GM in IV D5W 250 ML IV SCH (07:03)
[2022-10-10] MEDS: IV 1/2NS 1000 ML 1,000 ML IV PRN ×2 (07:33→22:32)
[2022-10-10 08:00] VITALS: BP 109/60
[2022-10-10] MEDS: THERAHONEY GEL 1.5 OZ TUBE TP SCH (09:00)
[2022-10-10] MEDS: MUPIROCIN OINT 2% 22 GM TUBE NS SCH ×2 (09:00→21:21)
[2022-10-10] MEDS: CEFEPIME 2 GM in IV D5W 100 ML IV SCH ×2 (10:54→21:17)
[2022-10-10] MEDS: methylPREDNISolone SOD SUCC 40 MG/ML VIAL IV SCH (10:54)
[2022-10-10 12:00] VITALS: BP 134/66
[2022-10-10] MEDS: MORPHINE SULFATE INJ 4 MG/ML DISP.SYRIN IV PRN (12:54)
[2022-10-10 16:00] VITALS: BP 126/72
--- NOTE | 2022-10-10 19:44 | NUR ---
TAXI DRIVER SUPERVISOR CLOSING NOTE PT IN BED, ASLEEP, EASILY AROUSABLE. RESPONSIVE TO TACTILE/PAIN STIMULI ONLY, NONVERBAL, OPENS EYES. ON NRB MASK @15LPM, LABORED BREATHING, NO ACUTE RESP DISTRESS. O2 SAT 100%. NO S/SX OF PAIN/DISCOMFORT AT THIS TIME. 0.45% NS @75ML/HR CURRENTLY INFUSING ON DANN ML, PATENT, CLEAN AND DRY. FC IN PLACED, PATENT DRAINING CLEAR YELLOW URINE. PT ON COMFORT MEASURES. SAFETY PRECAUTIONS IMPLEMENTED. ALL NEEDS ANTICIPATED, ALL DUE MEDICATIONS GIVEN ORDERED. WILL ENDORSE TO PM NURSE.
[2022-10-11] VITALS: BP 139/87
[2022-10-11] MEDS: IPRATROPIUM NEB FS 0.5 MG/2.5 ML AMPUL.NEB NEB SCH ×6 (03:30→23:29)
[2022-10-11] MEDS: ALBUTEROL FS 2.5 MG/3 ML VIAL.NEB NEB SCH ×6 (03:30→23:30)
[2022-10-11 04:00] VITALS: BP 116/60
[2022-10-11] MEDS: VANCOMYCIN 1 GM in IV D5W 250 ML IV SCH (06:00)
[2022-10-11] MEDS: BLOOD SUGAR DIAGNOSTIC 1 EACH STRIP IN SCH ×4 (06:00→17:34)
[2022-10-11 08:00] VITALS: BP 132/85
--- NOTE | 2022-10-11 08:46 | NUR ---
RT Tx refused per family request
--- NOTE | 2022-10-11 09:00 | NUR ---
PASTE UP COPY CAMERA OPERATOR OPENING NOTES RECEIVED PT IN BED OBTUNDED. NO DISTRESS OR DISCOMFORT NOTED. NO S/S OF PAIN NOTED. BREATHING ON NON BREATHER AT 15L, TOLERATING WELL, NOT IN DISTRESS, ON TELE MONITORING ST, PATIENT HAS IV ACCESS ON DANN ML , INTACT AND FLUSHES WELL, IVF 1/2 NS INFUSING AT 75 ML/HR, NO S/S OF INFILTRATION NOTED. F/C DRAINING WELL YELLOWISH COLOR URINE. G TUBE NOTED PATENT AND INTACT, FLUSHES WELL, ON G-TUBE FEEDING RUNNING AT 70ML/HR, OFF AT 0800 WILL TURN BACK ON AT 1200H. HOB ELEVATED. NOTED ON COMFORT MEASURES, FAMILY AT THE BEDSIDE. SIDE RAILS UP X3 AND CALL LIGHT WITHIN REACH. PLAN OF CARE CONTINUE.
[2022-10-11] MEDS: THERAHONEY GEL 1.5 OZ TUBE TP SCH (09:10)
[2022-10-11] MEDS: MUPIROCIN OINT 2% 22 GM TUBE NS SCH ×2 (09:10→21:34)
[2022-10-11] MEDS: methylPREDNISolone SOD SUCC 40 MG/ML VIAL IV SCH (09:26)
[2022-10-11] MEDS: CEFEPIME 2 GM in IV D5W 100 ML IV SCH ×2 (09:26→21:33)
--- NOTE | 2022-10-11 11:30 | NUR ---
SEEN BY DR. HEREDIA, FAMILY AT THE BEDSIDE, WITH ORDER TO GIVE PRN MORPHINE FOR COMFORT MEASURES, NOTED AND CARRIED OUT. PLAN OF CARE CONTINUE.
[2022-10-11] MEDS: MORPHINE SULFATE INJ 4 MG/ML DISP.SYRIN IV PRN (11:34)
[2022-10-11 12:00] VITALS: BP 130/79
--- NOTE | 2022-10-11 12:00 | NUR ---
FAMILY AT THE BEDSIDE, RESTART FEEDING ORDERED, TOLERATING WELL, NO RESIDUAL NOTED. NOTED WITH BM, PERICARE RENDERED AND REPOSITIONED PATIENT. WOUND CARE RENDERED. PLAN OF CARE CONTINUE.
[2022-10-11] MEDS: INSULIN REGULAR, HUMAN 100 UNIT/ML 3 ML VIAL SQ PRN ×2 (12:34→17:41)
[2022-10-11] MEDS: IV 1/2NS 1000 ML 1,000 ML IV PRN (15:40)
[2022-10-11 16:00] VITALS: BP 146/87
--- NOTE | 2022-10-11 18:07 | NUR ---
TOMBSTONE SETTER CLOSING NOTES RECEIVED PT IN BED OBTUNDED. NO DISTRESS OR DISCOMFORT NOTED. NO S/S OF PAIN NOTED. BREATHING ON NON BREATHER AT 15L, TOLERATING WELL, NOT IN DISTRESS, ON TELE MONITORING ST HR 106 PATIENT HAS IV ACCESS ON DANN ML , INTACT AND FLUSHES WELL, IVF 1/2 NS INFUSING AT 75 ML/HR, NO S/S OF INFILTRATION NOTED. F/C DRAINING WELL YELLOWISH COLOR URINE. G TUBE NOTED PATENT AND INTACT, FLUSHES WELL, ON G-TUBE FEEDING RUNNING AT 70ML/HR, TOLERATING WELL, NO RESIDUAL NOTED. HOB ELEVATED. NOTED ON COMFORT MEASURES. SIDE RAILS UP X3 AND CALL LIGHT WITHIN REACH.WILL ENDORSE TO NIGHT NURSE FOR JOSE.
--- NOTE | 2022-10-11 19:57 | NUR ---
noc rn note received patient at this time. Patient obtunded, eyes open. no s/s of apparent distress on 15lpm via non-rebreather mask. reading st on the tele monitor. not exhibiting pain via flacc. G-tube feeding Glucerna running @70mls/hr. 1/2 ns running @75mls/hr on DANN ml. will continue with comfort care.
[2022-10-11 20:00] VITALS: BP 136/87
--- NOTE | 2022-10-11 20:21 | NUR ---
RT NOTE HHN TX REFUSED BY FAMILY.
[2022-10-12] VITALS: BP 144/88
[2022-10-12] MEDS: BLOOD SUGAR DIAGNOSTIC 1 EACH STRIP IN SCH ×5 (00:19→23:47)
[2022-10-12] MEDS: INSULIN REGULAR, HUMAN 100 UNIT/ML 3 ML VIAL SQ PRN ×4 (00:21→17:41)
[2022-10-12] MEDS: ALBUTEROL FS 2.5 MG/3 ML VIAL.NEB NEB SCH ×6 (03:30→23:30)
[2022-10-12] MEDS: IPRATROPIUM NEB FS 0.5 MG/2.5 ML AMPUL.NEB NEB SCH ×6 (03:30→23:30)
[2022-10-12 04:00] VITALS: BP 115/66
[2022-10-12] MEDS: GLUCERNA 1.2 1,000 ML BOTTLE GT SCH (05:50)
--- NOTE | 2022-10-12 06:06 | NUR ---
noc rn note Patient started having a lot of congestion at this time, coughing with what it may seem like emesis, in her mask. Audible crackles heard. IV fluid and G-Tube feeding stopped for now. HOB elevated all the the way. RT made aware as well for possible suction later when stable.
[2022-10-12] MEDS: VANCOMYCIN 1 GM in IV D5W 250 ML IV SCH (06:28)
[2022-10-12] MEDS: IV 1/2NS 1000 ML 1,000 ML IV PRN ×2 (07:27→23:47)
--- NOTE | 2022-10-12 07:29 | NUR ---
noc rn closing note needs attended. report given to am rn for continuity of patient care.
--- NOTE | 2022-10-12 07:50 | NUR ---
RT Tx refused per family request
[2022-10-12 08:00] VITALS: BP 130/73
[2022-10-12] MEDS: methylPREDNISolone SOD SUCC 40 MG/ML VIAL IV SCH (08:16)
[2022-10-12] MEDS: CEFEPIME 2 GM in IV D5W 100 ML IV SCH ×2 (08:16→20:52)
[2022-10-12] MEDS: MUPIROCIN OINT 2% 22 GM TUBE NS SCH ×2 (08:17→20:56)
[2022-10-12] MEDS: THERAHONEY GEL 1.5 OZ TUBE TP SCH (08:17)
[2022-10-12 10:07] LABS: CALCIUM, SERUM 10.3 mg/dL (8.5-10.1); CREATININE 0.9 mg/dL (0.6-1.3); POTASSIUM 4.9 mmol/L (3.5-5.1)
[2022-10-12 12:00] VITALS: BP 128/70
--- NOTE | 2022-10-12 12:00 | NUR ---
GT FEEDING RESTART, NO RESIDUAL NOTED. FAMILY AT THE BEDSIDE.
--- NOTE | 2022-10-12 15:25 | NUR ---
WOUND CARE RENDERED.PLAN OF CARE CONTINUE.
[2022-10-12 16:00] VITALS: BP 109/60
[2022-10-12] MEDS: MORPHINE SULFATE INJ 4 MG/ML DISP.SYRIN IV PRN (16:27)
--- NOTE | 2022-10-12 18:14 | NUR ---
PATIENT'S DAUGHTER SCOTTIE PHONE NO [phone], WANT'S TO TALK TO DR. HEREDIA ABOUT DAUGHTER CHANGING HER MIND ABOUT HER MOTHER BEING ON COMFORT CARE, DR. HEREDIA NOTIFIED.
--- NOTE | 2022-10-12 18:27 | NUR ---
CERTIFIED NURSES AIDE CLOSING NOTES PATIENT IN BED AWAKE, EYES OPEN, NON VERBAL, OBTUNDED. NO DISTRESS OR DISCOMFORT NOTED. NO S/S OF PAIN NOTED. ON NON BREATHER AT 15L, TOLERATING WELL, NOT IN DISTRESS, ON TELE MONITORING SR 85, NOTED WITH IV ACCESS ON DANN ML , INTACT AND FLUSHES WELL, IVF 1/2 NS INFUSING AT 75 ML/HR, NO S/S OF INFILTRATION NOTED. F/C DRAINING WELL YELLOWISH COLOR URINE. G TUBE NOTED PATENT AND INTACT, FLUSHES WELL, ON G-TUBE FEEDING RUNNING AT 70ML/HR, TOLERATING WELL, NO VOMITING NOTED, NO RESIDUAL NOTED. HOB ELEVATED. NOTED ON COMFORT MEASURES, DAUGHTER AT THE BEDSIDE. SIDE RAILS UP X3 AND CALL LIGHT WITHIN REACH. WILL ENDORSE TO LAUNDRY MACHINE OPERATOR NURSE FOR JOSE.
[2022-10-12 20:00] VITALS: BP 116/71
--- NOTE | 2022-10-12 20:00 | NUR ---
CLAMP JIG ASSEMBLER NOTE PT IN BED WITH EYES OPEN. NON VERBAL. PT REMAIN ON NON REBREATHER MASK WITH O2 15 L O2 SAT 100%. SUCTIONED HER YELLOWISH COLOR THICK SECRETIONS NOTED. ON TELE SR HR 85. F/C INTACT AND PATENT DRAINING YELLOWISH COLOR URINE. GTF GLUCERNA INFUSING AT 70 ML/HR. IVF 1/2 NS INFUSING AT 75 ML/HR,NO SS OF INFILTRATION NOTED. SIDE RAILS UP X 3 AND CALL LIGHT WITHIN REACH. ALL NEEDS ATTENDED.VSS CONTINUE TO MONITOR HER. DTR AT BED SIDE.
--- NOTE | 2022-10-12 20:10 | NUR ---
RT NOTE TX NOT GIVEN DUE TO DESATURATION WHEN PLACING ON AEROSOL MASK. FAMILY IS ALREADY AWARE. SPO2 @ 100%, HR 87, RR 22. WILL CONTINUE TO MONITOR. LUIS TORREZ NOTIFIED.
--- NOTE | 2022-10-12 23:53 | NUR ---
RT NOTE NASOTRACHEAL SUCTION PERFORMED. LARGE THICK CAI SECRETIONS NOTED. RN LORE @ BEDSIDE. PT REMAINS ON 100% NONBREATHER MASK, SPO2 @ 100%, HR 90, RR 22.
[2022-10-13] VITALS: BP 136/73
[2022-10-13] MEDS: IPRATROPIUM NEB FS 0.5 MG/2.5 ML AMPUL.NEB NEB SCH ×6 (03:15→23:30)
[2022-10-13] MEDS: ALBUTEROL FS 2.5 MG/3 ML VIAL.NEB NEB SCH ×6 (03:16→23:30)
[2022-10-13 04:00] VITALS: BP 107/63
[2022-10-13] MEDS: VANCOMYCIN 1 GM in IV D5W 250 ML IV SCH (06:00)
[2022-10-13] MEDS: BLOOD SUGAR DIAGNOSTIC 1 EACH STRIP IN SCH ×3 (06:24→18:30)
--- NOTE | 2022-10-13 07:06 | NUR ---
POSTAL SERVICE SECTIONAL CENTER MANAGER NOTE PT IN BED ASLEEP, AROUSABLE. REMAIN ON NRM 15 L O2 100% SATURATION. NO DISTRESS OR DISCOMFORT NOTED. NO S/S OF PAIN NOTED. KEPT HER DRY AND CLEAN. ALL NEEDS ATTENDED. ENDORSE. TO DAY SHIFT NURSE FOR CONTINUE TO CARE.
--- NOTE | 2022-10-13 07:20 | NUR ---
LABORER FRYER FARM NOTES PATIENT IN BED AWAKE, EYES OPEN, NON VERBAL, OBTUNDED. NO DISTRESS OR DISCOMFORT NOTED. NO S/S OF PAIN NOTED. ON NON BREATHER AT 15L, TOLERATING WELL, NOT IN DISTRESS, ON TELE MONITORING ST 104, NOTED WITH IV ACCESS ON DANN ML , INTACT AND FLUSHES WELL, IVF 1/2 NS INFUSING AT 75 ML/HR, NO S/S OF INFILTRATION NOTED. F/C DRAINING WELL YELLOWISH COLOR URINE. G TUBE NOTED PATENT AND INTACT, FLUSHES WELL, ON G-TUBE FEEDING RUNNING AT 70ML/HR, TOLERATING WELL, NO VOMITING NOTED, NO RESIDUAL NOTED. HOB ELEVATED. NOTED ON COMFORT MEASURES,WILL CONT TO MONITOR,KEEP HOB ELEVATED AT ALL TIME
--- NOTE | 2022-10-13 07:59 | NUR ---
Tx not given due to desaturation when placing on aerosol mask. LUIS Abarca notified. Addendum: 10/13/22 at 0802 by ROSANNE RENO RT Amended: Links added.
[2022-10-13 08:00] VITALS: BP 111/53
--- NOTE | 2022-10-13 08:03 | NUR ---
CABLE OPERATOR NOTE VANCO LEVEL 21 ,PHARMACIST NOTIFIED OK TO HOLD DOSE AT THIS TIME, ALSO PER RT UNABALE TO DO BREATHING TX PATIENT EASLILY DESATURATED
[2022-10-13] MEDS: methylPREDNISolone SOD SUCC 40 MG/ML VIAL IV SCH (08:09)
[2022-10-13] MEDS: MUPIROCIN OINT 2% 22 GM TUBE NS SCH ×2 (08:10→21:09)
[2022-10-13] MEDS: CEFEPIME 2 GM in IV D5W 100 ML IV SCH ×2 (08:10→21:08)
[2022-10-13] MEDS: THERAHONEY GEL 1.5 OZ TUBE TP SCH (08:11)
[2022-10-13] MEDS: MORPHINE SULFATE INJ 4 MG/ML DISP.SYRIN IV PRN ×2 (09:37→13:33)
--- NOTE | 2022-10-13 10:09 | NUR ---
telegraphic typewriter repairer note noted patient in respiratory distress, respiration more labored with sob ,saturation 94% at this time morphine 3 mg ivp given as ordered,patient on comfort care,on dnr\dni status. will monitr
--- NOTE | 2022-10-13 11:32 | NUR ---
NT Suction performed on patient. Suctioned moderate amounts of pale yellow secretions. LUIS Abarca at bedside. HR 116 Sp02 95% RR 24
--- NOTE | 2022-10-13 11:32 | NUR ---
teletype mechanic note still with respiratory distress, breathing labored, on 15 l nonrebreather mask, rt at bedside nasopharyngeal suction done, small amt white secretion obtained, call to dr torres disability liaison officer awaiting for response
--- NOTE | 2022-10-13 11:41 | NUR ---
telephone station repairer note marcus torres rn manager call at bedside ,seen patient aware of patient condition and aware that patient has labored breathing stated that will call to family also dr torres called back with order Ativan 1mg ivp q2 hour rrn
[2022-10-13] MEDS: GLUCERNA 1.2 1,000 ML BOTTLE GT SCH (11:48)
[2022-10-13] MEDS: LORAZEPAM INJ 2 MG/ML VIAL IV PRN ×3 (11:58→22:04)
[2022-10-13 12:00] VITALS: BP 115/52
--- NOTE | 2022-10-13 12:07 | NUR ---
supervisor telephone answering service note per dr torres Ativan 1 mg was given as ordered bp 115/52 saturation 92% ,still labored respiration keep hob elevated at all time ,will monitor
--- NOTE | 2022-10-13 13:38 | NUR ---
director telemetry note morphine given for tachypnea and respiratory distress, daughter at bedside , on dnr\dni status, dr reid data analyst Lucas at bedside notified that now patient has coffee ground bleeding from gtube stoma stated in 4 hour aspirate residual and hold g tube feeding at this time ,will f\u
[2022-10-13] MEDS: IV 1/2NS 1000 ML 1,000 ML IV PRN (15:02)
[2022-10-13 16:00] VITALS: BP 123/78
--- NOTE | 2022-10-13 17:03 | NUR ---
FUR JOINER NOTE DAUGHTER AT BEDSIDE, UPDATED PATIENT CONDITION,ATIVAN 1 MG IV GIVEN AT 1611 , FOR TACHYPNEA AND LABORED REPARATION, PATIENT ON DNR\DNI STATUS
--- NOTE | 2022-10-13 17:16 | NUR ---
METAL TILE LATHER NOTE CHECKED RESIDUAL FROM G TUBE NO BLEEDING NOTED, NO DRAINAGE NOTED . DEB REECE NOTIFIED OK TO RESTART G TUBE FEEDING SLOWLY
[2022-10-13] MEDS: INSULIN REGULAR, HUMAN 100 UNIT/ML 3 ML VIAL SQ PRN (17:25)
--- NOTE | 2022-10-13 18:39 | NUR ---
telemarketing supervisor note patient in bed, on nonbreather mask as ordered ,Latest saturation 90% , patient obtunded family at bedside , on tele monitor st 104, with g tube feeding as ordered, keep hob elevated at all time, rt upper arm mid line in place and flushed well ,on ivf as ordered , with Tuttle cath to gravity with yellow color urine, bed in lowest and locked position ,will cont to monitor closely
[2022-10-13 18:46] LABS: CALCIUM, SERUM 10.4 mg/dL (8.5-10.1); CREATININE 0.9 mg/dL (0.6-1.3); POTASSIUM 4.8 mmol/L (3.5-5.1)
--- NOTE | 2022-10-13 19:25 | NUR ---
RN OPENING NOTES, patient in bed, on NRM at 15l, O2 sat level in low 90s at this time, daughter at bedside, on tele monitor st sinus tachy low 100s, GT feeding as ordered, keep hob elevated at all time, suctioning as needed, on ivf infusing well and patient tolerated well, Tuttle cath draining by gravity with yellow color urine, bed in lowest and locked position , with plan for comfort measures, daughter to decide possible tomorrow, will continue to monitor closely.
--- NOTE | 2022-10-13 20:04 | NUR ---
RT NOTE PT RECEIVED ON NONBREATHER MASK @ 100%. TX WITHHELD DUE TO DESATURATION UPON PLACING AEROSOL MASK W/ NEBULIZER. FAMILY @ BEDSIDE AND IS ALREADY AWARE. RN NOTIFIED. WILL CONTINUE TO MONITOR CLOSELY.
[2022-10-13 22:00] VITALS: BP 128/76
--- NOTE | 2022-10-13 23:40 | NUR ---
PATIENT NOTED WITH DESATURATION MID 80S, PT ON NRM AT 15LPM, DNR/DNI CODE, PLAN FOR COMFORT MEASURES, DAUGHTER STILL THINKING ABOUT IT, RENEE SEGURA FIELD TECH OUTSIDE PLANT TECHNICIAN NOTIFIED AND PER HIM TO START PATIENT IN HIGH FLOW 02, ORDER NOTED AND CARRIED OUT, KASSI RT INFORMED..
--- NOTE | 2022-10-13 23:55 | NUR ---
RT NOTE PT PLACED ON HIGH FLOW NASAL CANNULA @ 100% ON 40 LPM PER RENEE. RN GERALDINE NOTIFIED. WATER BAG FULL. ALARMS ON AND AUDIBLE. SPO2 @ 98%, HR 101, RR 22. WILL CONTINUE TO MONITOR CLOSELY.
[2022-10-14] VITALS: BP 108/71
[2022-10-14] MEDS: BLOOD SUGAR DIAGNOSTIC 1 EACH STRIP IN SCH ×5 (00:37→23:34)
[2022-10-14] MEDS: INSULIN REGULAR, HUMAN 100 UNIT/ML 3 ML VIAL SQ PRN ×5 (00:38→23:34)
--- NOTE | 2022-10-14 00:38 | NUR ---
blood sugar 80mg/dL at this time, no insulin administered per sliding scale.
[2022-10-14] MEDS: ALBUTEROL FS 2.5 MG/3 ML VIAL.NEB NEB SCH ×6 (03:59→23:16)
[2022-10-14 04:00] VITALS: BP 130/77
[2022-10-14] MEDS: IPRATROPIUM NEB FS 0.5 MG/2.5 ML AMPUL.NEB NEB SCH ×6 (04:00→23:16)
--- NOTE | 2022-10-14 06:47 | NUR ---
RN OPENING NOTES, Patient in bed, on HF o2 initially at 40L 100%, AT THIS TIME 30L 100%FIO2, O2 sat level > 98%, this time, on tele monitor sinus tachy 90-110s, Ativan given one time during the night, GT feeding as ordered, keep hob elevated at all time, suctioning as needed, on ivf infusing well and patient tolerated well, Tuttle cath draining by gravity with yellow color urine, bed in lowest and locked position , with plan for comfort measures, daughter to decide possible today, will endorse continuity of care to oncoming nurse.
--- NOTE | 2022-10-14 07:33 | NUR ---
RN OPENING NOTES, Patient in bed, on HF , AT THIS TIME 30L 40% IO2, O2 sat level > 98%, this time, on tele monitor sinus tachy 90-110s, GT feeding CURRENTLY RUNNING 95MLS /HR AND WILL INCREASE TO GOAL OF 70MLS/HR. IV ACCESS ON DANN MIDLINE 1/2 NS AT 75ML/HR. SAFETY MEASURES IN PLACE PER HOSPITAL PROTOCOL.
[2022-10-14 08:00] VITALS: BP 141/84
[2022-10-14] MEDS: CEFEPIME 2 GM in IV D5W 100 ML IV SCH ×2 (08:03→20:51)
[2022-10-14] MEDS: methylPREDNISolone SOD SUCC 40 MG/ML VIAL IV SCH (08:03)
[2022-10-14] MEDS: IV 1/2NS 1000 ML 1,000 ML IV PRN ×2 (08:08→23:23)
[2022-10-14] MEDS: MUPIROCIN OINT 2% 22 GM TUBE NS SCH ×2 (08:20→20:55)
[2022-10-14] MEDS: THERAHONEY GEL 1.5 OZ TUBE TP SCH (08:20)
--- NOTE | 2022-10-14 11:28 | NUR ---
RN NOTE CHECKED PATIENTS RESIDUAL NOTED 90MLS OUTPUT. DID NOT INCREASE RATE THAT THIS TIME WILL CONT 45MLS/HR AND REASSESS.
[2022-10-14 12:00] VITALS: BP 123/70
--- NOTE | 2022-10-14 12:22 | NUR ---
RN NOTE ASSESSED RESIDUAL, 120ML OUTPUT. WILL HOLD TUBE FEEDING FOR NOW AND RESUME AT A SLOWER RATE. WILL INFORM PROVIDER
[2022-10-14 15:43] LABS: CALCIUM, SERUM 10.4 mg/dL (8.5-10.1)
[2022-10-14 16:00] VITALS: BP 135/81
--- NOTE | 2022-10-14 17:49 | NUR ---
RN NOTE GLUCERNA RESUMED AT 25MLS/HR
[2022-10-14] MEDS: GLUCERNA 1.2 1,000 ML BOTTLE GT SCH (17:51)
--- NOTE | 2022-10-14 18:33 | NUR ---
RN CLOSING NOTE PATIENT RESTING IN BE, IS NOT ABLE TO COMMUNICATE, ONLY OPENS EYES. DAUGHTER AT BEDSIDE. ON HF 30MLS.HR FI02 40%. ON TELE MONITOR READING ST 103. GTUBE RUNNING GLUCERNA AT 25MLS/HR CURRENTLY WITH GOAL OF 70MLS/HR. DANN MIDLINE RUNNING 1/2 NS AT 75MLS/HR. JACKSON CATH DRAINING YELLOW URINE TO GRAVITY. SAFETY MEASURES IN PLACE PER HOSPITAL PROTOCOL.
[2022-10-14 20:00] VITALS: BP 132/65
--- NOTE | 2022-10-14 20:00 | NUR ---
JOB FOREMAN OPENING NOTE RECEIVED PT IN BED, AWAKE, NOT VERBALLY RESPONSIVE. RESPONSIVE TO TACTILE AND PAIN STIMULI. NO EVIDENCE OF PAIN/DISCOMFORT AT THIS TIME. PT ON HF VIA NC 30LPM, WELL TOLERATED, O2 SAT 97%. PT ON TELE MONITORING READING ST 106HR. 1/2 NS CURRENTLY INFUSING ON DANN ML, PATENT, NO S/S OF INFX/INFILTRATION NOTED. PT ALSO ON GTF, GLUCERNA 1.2 @ 25ML/HR, GOAL OF 70ML/HR. FC IN PLACED, PATENT AND SECURED, DRAINING CLEAR YELLOW URINE. HOB. SAFETY PRECAUTIONS IMPLEMENTED AT ALL TIMES: BED LOCKED AND IN LOWEST POSITION. WILL CONT WITH POC.
--- NOTE | 2022-10-14 23:35 | NUR ---
KIER PLEATER NOTE BS= 110MG/DL, NO COVERAGE NEEDED PER SLIDING SCALE ORDERED.
[2022-10-15] VITALS: BP 130/85
[2022-10-15 04:00] VITALS: BP 125/80
[2022-10-15] MEDS: ALBUTEROL FS 2.5 MG/3 ML VIAL.NEB NEB SCH ×6 (04:25→23:59)
[2022-10-15] MEDS: IPRATROPIUM NEB FS 0.5 MG/2.5 ML AMPUL.NEB NEB SCH ×6 (04:25→23:59)
[2022-10-15] MEDS: BLOOD SUGAR DIAGNOSTIC 1 EACH STRIP IN SCH ×4 (05:45→23:57)
[2022-10-15] MEDS: INSULIN REGULAR, HUMAN 100 UNIT/ML 3 ML VIAL SQ PRN ×4 (05:46→23:57)
--- NOTE | 2022-10-15 05:46 | NUR ---
REEL SYSTEM OPERATOR NOTE BS= 125MG/DL, NO INSULIN COVERAGE PER SLIDING SCALE ORDERED.
--- NOTE | 2022-10-15 06:30 | NUR ---
ROUTE AIDE CLOSING NOTE PT IN BED, ASLEEP, EASILY AROUSABLE TO RESPONSIVE TO TACTILE AND PAIN STIMULI. NO EVIDENCE OF PAIN/DISCOMFORT AT THIS TIME. PT ON HF VIA NC 30LPM, WELL TOLERATED, O2 SAT 96%. PT ON TELE MONITORING READING ST 111HR. 1/2 NS CURRENTLY INFUSING ON DANN ML, PATENT, NO S/S OF INFX/INFILTRATION NOTED. PT ALSO ON GTF, GLUCERNA 1.2 @ 70ML/HR, WELL TOLERATED, NO N/V, 25ML RESIDUAL. HOB ELEVATED AT ALL TIMES. ASIPRATION PRECAUTION OBSERVED. FC IN PLACED, PATENT AND SECURED, DRAINING CLEAR YELLOW URINE. HOB. SAFETY PRECAUTIONS IMPLEMENTED AT ALL TIMES: BED LOCKED AND IN LOWEST POSITION. WILL ENDORSE TO AM SHIFT.
--- NOTE | 2022-10-15 07:14 | NUR ---
RN OPENING NOTE RECEIVED PT IN BED, AWAKE, NOT VERBALLY RESPONSIVE. RESPONSIVE TO TACTILE AND PAIN STIMULI. NO EVIDENCE OF PAIN/DISCOMFORT AT THIS TIME. PT ON HF VIA NC 30LPM, WELL TOLERATED, PT ON TELE MONITORING . 1/2 NS CURRENTLY INFUSING ON DANN ML, PATENT, NO S/S OF INFX/INFILTRATION NOTED. PT ALSO ON GTF, GLUCERNA 1.2 @ 70ML/HR. FC IN PLACED, PATENT AND SECURED, DRAINING CLEAR YELLOW URINE. HOB. SAFETY PRECAUTIONS IMPLEMENTED AT ALL TIMES: BED LOCKED AND IN LOWEST POSITION.
[2022-10-15 08:00] VITALS: BP 98/54
[2022-10-15] MEDS: CEFEPIME 2 GM in IV D5W 100 ML IV SCH (08:04)
[2022-10-15] MEDS: methylPREDNISolone SOD SUCC 40 MG/ML VIAL IV SCH (08:04)
[2022-10-15] MEDS: MUPIROCIN OINT 2% 22 GM TUBE NS SCH ×2 (08:05→21:05)
[2022-10-15] MEDS: THERAHONEY GEL 1.5 OZ TUBE TP SCH (08:05)
[2022-10-15 12:42] VITALS: BP 98/63
[2022-10-15] MEDS: IV 1/2NS 1000 ML 1,000 ML IV PRN (13:44)
[2022-10-15] MEDS: MORPHINE SULFATE INJ 4 MG/ML DISP.SYRIN IV PRN (14:04)
[2022-10-15 16:00] VITALS: BP 115/78
--- NOTE | 2022-10-15 18:33 | NUR ---
RN CLOSING NOTE PATIENT RESTING IN BE, IS NOT ABLE TO COMMUNICATE, ONLY OPENS EYES. DAUGHTER AT BEDSIDE. ON HF 30L FI02 40%. ON TELE MONITOR READING ST 112. GTUBE IS CURRENTLY NOT RUNNING TO BE RESUMED AT 2000 TONIGHT. DANN MIDLINE RUNNING 1/2 NS AT 75MLS/HR. JACKSON CATH DRAINING YELLOW URINE TO GRAVITY. SAFETY MEASURES IN PLACE PER HOSPITAL PROTOCOL. WILL ENDORSE TO NIGHT NURSE FOR JOSE
--- NOTE | 2022-10-15 19:30 | NUR ---
STAMPING MILL TENDER OPENING NOTE RECEIVED PT IN BED, AWAKE, RESPONSIVE TO TACTILE AND PAIN STIMULI ONLY, NONVERBAL. NO EVIDENCE OF PAIN/DISCOMFORT AT THIS TIME. PT ON HF VIA NC 30LPM, WELL TOLERATED, O2 SAT 98%. PT ON TELE MONITORING. 1/2 NS CURRENTLY INFUSING ON DANN ML, PATENT, NO S/S OF INFX/INFILTRATION NOTED. GTF RUNNING GLUCERNA 1.2 @ 70ML/HR, WELL TOLERATED, NO N/V. HOB ELEVATED.. FC IN PLACED, PATENT AND SECURED, DRAINING CLEAR YELLOW URINE BY GRAVITY. SAFETY PRECAUTIONS IMPLEMENTED AT ALL TIMES: BED LOCKED AND IN LOWEST POSITION. FAMILY AT BEDSIDE. WILL CONT POC.
[2022-10-15 20:00] VITALS: BP 113/72
[2022-10-15] MEDS: GLUCERNA 1.2 1,000 ML BOTTLE GT SCH (22:23)
--- NOTE | 2022-10-15 23:59 | NUR ---
JOURNEY LINEMAN NOTE BS= 128MG/DL, NO INSULIN COVERAGE PER SLIDING SCALE ORDERED.
[2022-10-16] VITALS: BP 123/78
[2022-10-16] MEDS: IPRATROPIUM NEB FS 0.5 MG/2.5 ML AMPUL.NEB NEB SCH ×6 (03:11→23:34)
[2022-10-16] MEDS: ALBUTEROL FS 2.5 MG/3 ML VIAL.NEB NEB SCH ×6 (03:12→23:34)
[2022-10-16 04:00] VITALS: BP 117/77
[2022-10-16] MEDS: IV 1/2NS 1000 ML 1,000 ML IV PRN ×2 (04:13→17:23)
[2022-10-16] MEDS: BLOOD SUGAR DIAGNOSTIC 1 EACH STRIP IN SCH ×3 (05:53→17:42)
[2022-10-16] MEDS: INSULIN REGULAR, HUMAN 100 UNIT/ML 3 ML VIAL SQ PRN ×3 (06:00→17:52)
--- NOTE | 2022-10-16 06:34 | NUR ---
MANAGER INTEL CLOSING NOTE PT IN BED, EYES OPEN, RESPONSIVE TO TACTILE AND PAIN STIMULI ONLY, NONVERBAL. NO EVIDENCE OF PAIN/DISCOMFORT AT THIS TIME. HF VIA NC TITRATED DOWN 20LPM 30%FIO2, WELL TOLERATED, O2 SAT 98%. PT ON TELE MONITOR READING ST. 1/2 NS CURRENTLY INFUSING ON DANN ML, PATENT, NO S/S OF INFX/INFILTRATION NOTED. GTF RUNNING GLUCERNA 1.2 @ 70ML/HR, WELL TOLERATED, NO N/V. HOB ELEVATED. FC IN PLACED, PATENT AND SECURED, DRAINING CLEAR YELLOW URINE BY GRAVITY. SAFETY PRECAUTIONS IMPLEMENTED AT ALL TIMES: BED LOCKED AND IN LOWEST POSITION. ALL NEEDS ANTICIPATED. KEPT PT CLEAN, DRY AND COMFORTABLE AT ALL TIMES.
[2022-10-16 08:00] VITALS: BP 132/77
--- NOTE | 2022-10-16 08:00 | NUR ---
FIBERGLASS AUTOBODY REPAIRER OPENING NOTE RECEIVED PT IN BED, AWAKE, RESPONSIVE TO TACTILE AND PAIN STIMULI ONLY, NONVERBAL. NO EVIDENCE OF PAIN/DISCOMFORT AT THIS TIME. PT ON HF VIA NC 30LPM, WELL TOLERATING WELL, PT ON TELE MONITORING ST 119. 1/2 NS CURRENTLY INFUSING ON DANN ML, PATENT, NO S/S OF INFX/INFILTRATION NOTED. GTF RUNNING GLUCERNA 1.2 @ 70ML/HR, WELL TOLERATED, NO N/V, NO RESIDUAL NOTED. HOB ELEVATED.. FC IN PLACED, PATENT AND SECURED, DRAINING CLEAR YELLOW URINE BY GRAVITY. SAFETY PRECAUTIONS IMPLEMENTED AT ALL TIMES: BED LOCKED AND IN LOWEST POSITION. PLAN OF CARE CONTINUE.
[2022-10-16] MEDS: THERAHONEY GEL 1.5 OZ TUBE TP SCH (08:16)
[2022-10-16] MEDS: methylPREDNISolone SOD SUCC 40 MG/ML VIAL IV SCH (08:16)
[2022-10-16] MEDS: MUPIROCIN OINT 2% 22 GM TUBE NS SCH ×2 (08:16→22:08)
--- NOTE | 2022-10-16 08:45 | NUR ---
DR. GARDNER AT THE BEDSIDE, WITH ORDER TO TITRATE PATIENT FROM HIGH FLOW TO NC AT 6LPM 02. NOTED AND CARRIED OUT.
--- NOTE | 2022-10-16 08:59 | NUR ---
WOUND CARE CONSULT: PT PRESENTS WITH SACRAL STAGE 4 PRESSURE ULCER WELL RT HEEL, FOOT AND ANKLE DISCOLORATION/SCARRING, PRESENT ON ADMISSION. PT ALSO NOTED TO HAVE INTACT DEEP TISSUE INJURY TO RT BUTTOCK OVER PREVIOUS SCARRING WELL LEFT HEEL INTACT DEEP TISSUE INJURY/DISCOLORATION. PT NOTED TO HAVE VERY FRAGILE SKIN. RECOMMENDATIONS MADE FOR SKIN PROTECTION. DISCUSSED WITH NURSING STAFF AND SURGICAL TEAM CURRENTLY ON CASE. FIRST STEP LOW AIRLOSS MATTRESS IS ON ORDER. PT NOTED TO HAVE MULTIPLE CO-MORBIDITIES INCLUDING ACUTE HYPOXIC RESPIRATORY FAILURE (ON HIGH FLOW OXYGEN BY NASAL CANNULA), PNEUMONIA, SEVERE SEPSIS, ACUTE KIDNEY INJURY, HISTORY OF CVA, CEREBRAL CYST, ANEMIA, CHRONIC PANCREATITIS, HISTYORY OF COVID 19 INFECTION, AND HISTORY OF SCHIZOPHRENIA. DUE TO MULTIPLE CO-MORBIDITIES, FURTHER SKIN BREAKDOWN MAY BE UNAVOIDABLE. MD IN AGREEMENT WITH PLAN OF CARE. Addendum: 10/16/22 at 0906 by JEANMARIE TOPETE WNDNU Amended: Links added.
--- NOTE | 2022-10-16 09:08 | NUR ---
RT SANON AT THE BEDSIDE, INFORMED DR. GARDNER'S ORDER, RT CHANGED FROM HI FLOW TO SIMPLE MASK 6LPM SAT 93-94,PLAN OF CARE CONTINUE.
--- NOTE | 2022-10-16 11:09 | NUR ---
DR. REECE AT THE BEDSIDE, INFORMED THAT PATIENT'S DAUGHTER WANT'S A UPDATE, PER DR. REECE HE WILL CALL THE DAUGHTER. PLAN OF CARE CONTINUE.
--- NOTE | 2022-10-16 11:44 | NUR ---
NOTED TEMP 100.5, COOLING MEASURES RENDERED, WILL RECHECK TEMPERATURE IN 30 MINS. DEB REECE DNP NOTIFIED, NO NEW ORDERS. PLAN OF CARE CONTINUE.
[2022-10-16 12:00] VITALS: BP 118/87
[2022-10-16] MEDS: ACETAMINOPHEN 650 MG/20.3 ML UDC GT PRN (12:11)
--- NOTE | 2022-10-16 12:30 | NUR ---
RECHECKED T= 98.7, NOT IN DISTRESS, PLAN OF CARE CONTINUE.
[2022-10-16 13:06] LABS: BASOPHILS # (AUTO) 0.1 K/uL (0.0-0.2); BASOPHILS % (AUTO) 0.2 % (0.0-2.0); EOSINOPHILS % (AUTO) 0.1 % (0.0-6.0); HEMATOCRIT 30 % (33-45); HEMOGLOBIN 9.3 g/dL (11.5-14.8); LYMPHOCYTES # (AUTO) 0.6 K/uL (0.8-4.8); LYMPHOCYTES % (AUTO) 2.7 % (20.0-44.0); MEAN CORPUSCULAR HGB CONC 31 g/dl (31.0-36.0); MEAN CORPUSCULAR VOLUME 90 fL (82-100); MONOCYTES # (AUTO) 0.3 K/uL (0.1-1.30); MONOCYTES % (AUTO) 1.2 % (2.0-12.0); NEUTROPHILS # (AUTO) 21.5 K/uL (1.8-8.9); NEUTROPHILS % (AUTO) 95.8 % (43.0-81.0); PLATELET COUNT (AUTO) 338 K/uL (150-450); RED BLOOD CELL COUNT(AUTO) 3.37 MIL/uL (4.0-5.2); WHITE BLOOD COUNT (AUTO) 22.5 K/uL (4.3-11.0)
[2022-10-16 13:29] LABS: CALCIUM, SERUM 10.4 mg/dL (8.5-10.1); CREATININE 1.1 mg/dL (0.6-1.3); MAGNESIUM 2.5 mg/dL (1.8-2.4); POTASSIUM 4.7 mmol/L (3.5-5.1)
[2022-10-16 16:00] VITALS: BP 124/85
--- NOTE | 2022-10-16 18:21 | NUR ---
ICT CUSTOMER SUPPORT OFFICER CLOSING NOTE RECEIVED PT IN BED, AWAKE, RESPONSIVE TO TACTILE AND PAIN STIMULI ONLY, NONVERBAL. NO EVIDENCE OF PAIN/DISCOMFORT AT THIS TIME. FAMILY MEMBER AT THE BEDSIDE. PATIENT ON 5LPM 02 VIA NC, TOLERATING WELL. PT ON TELE MONITORING ST. 1/2 NS CURRENTLY INFUSING ON DANN ML, PATENT, NO S/S OF INFX/INFILTRATION NOTED. NOTED WITH GT, PATENT AND INTACT, NO RESIDUAL NOTED. GTF FEEDING OFF AT 1800, WILL ENDORSE TO NIGHT NURSE TO TURN BACK ON 2200H. NO N/V, NO RESIDUAL NOTED. HOB ELEVATED.. FC IN PLACED, PATENT AND SECURED, DRAINING CLEAR YELLOW URINE BY GRAVITY. SAFETY PRECAUTIONS IMPLEMENTED AT ALL TIMES: BED LOCKED AND IN LOWEST POSITION. WILL ENDORSE TO NIGHT NURSE FOR JOSE.
--- NOTE | 2022-10-16 18:55 | NUR ---
NOTED RIGHT UPPER ARM MIDLINE NOT WORKING, NOT FLUSHING, PATIENT IS VERY CONTRACTED NOTED MIDLINE WAS PULLED OUT, TRIED TO REINSERT PERIPHERAL LINE X3, UNABLE TO INSERT, MIDLINE ORDERED PLACED. NOTIFIED SOFTWARE QA MANAGER. WILL ENDORSE TO BOARD MACHINE SET UP OPERATOR NURSE FOR JOSE.
--- NOTE | 2022-10-16 19:40 | NUR ---
REFRIGERATION ENGINEERING TEACHER OPENING NOTE RECEIVED PT IN BED, AWAKE, RESPONSIVE TO TACTILE AND PAIN STIMULI ONLY, NONVERBAL. NO S/S OF PAIN/DISCOMFORT AT THIS TIME. PT ON HF VIA NC 30LPM, TOLERATING WELL, PT ON TELE MONITORING ST 107. NO IV ACCESS AT THIS TIME. PT HAS ORDER FOR MIDLINE INSERTION. WILL FOLLOW UP. G-TUBE FEEDING RUNNING GLUCERNA 1.2 @ 70ML/HR, WELL TOLERATED, NO N/V, NO RESIDUAL NOTED. HOB ELEVATED.. JACKSON CATHETER IN PLACE, PATENT, AND DRAINING CLEAR YELLOW URINE BY GRAVITY. SAFETY PRECAUTIONS IMPLEMENTED AT ALL TIMES: BED LOCKED, AND IN LOWEST POSITION SR UP X2. WILL CONTINUE TO MONITOR PT.
[2022-10-16 20:00] VITALS: BP 115/68
[2022-10-17] VITALS (7 sets, daily range): BP systolic 97–123; BP diastolic 58–77
[2022-10-17] MEDS: INSULIN REGULAR, HUMAN 100 UNIT/ML 3 ML VIAL SQ PRN ×4 (01:01→17:39)
[2022-10-17] MEDS: ALBUTEROL FS 2.5 MG/3 ML VIAL.NEB NEB SCH ×6 (03:52→23:36)
[2022-10-17] MEDS: IPRATROPIUM NEB FS 0.5 MG/2.5 ML AMPUL.NEB NEB SCH ×6 (03:52→23:36)
--- NOTE | 2022-10-17 06:50 | NUR ---
TECHNICAL PROGRAM MANAGER CLOSING NOTE LEFT PT IN BED, AWAKE, RESPONSIVE TO TACTILE AND PAIN STIMULI ONLY, NONVERBAL. NO EVIDENCE OF PAIN/DISCOMFORT AT THIS TIME. FAMILY MEMBER AT THE BEDSIDE. PATIENT ON 5LPM 02 VIA NC, TOLERATING WELL. PT ON TELE MONITORING ST. 1/2 NS CURRENTLY INFUSING TO RIGHT WRIST IV ACCESS, AT 75 ML/HR, PATENT, NO S/S OF INFX/INFILTRATION NOTED. NOTED WITH GT, PATENT AND INTACT, NO RESIDUAL NOTED. GTF FEEDING WAS TURNED BACK ON AT 2200H. NO N/V, NO RESIDUAL NOTED. HOB ELEVATED.. FC IN PLACED, PATENT AND SECURED, DRAINING CLEAR YELLOW URINE BY GRAVITY, 600 ML OF URINE DRAINED. SAFETY PRECAUTIONS IMPLEMENTED AT ALL TIMES: BED LOCKED AND IN LOWEST POSITION. WILL ENDORSE TO AM NURSE FOR JOSE.
[2022-10-17] MEDS: BLOOD SUGAR DIAGNOSTIC 1 EACH STRIP IN SCH ×5 (06:55→23:59)
--- NOTE | 2022-10-17 07:30 | NUR ---
RN note Received patient in bed. [id number]. On 3L oxygen via NC, RR~18/min. quality assurance monitor final showed SR with HR 90/min. Glucerna is running at 70mL/hr via G-tube. Right hand IV site is dry and patent. Tuttle is in place, draining yellowish urine. Call monteiro is placed within reach. Bed is locked and placed in the lowest position. Will continue monitoring and care.
[2022-10-17] MEDS: methylPREDNISolone SOD SUCC 40 MG/ML VIAL IV SCH (08:44)
[2022-10-17] MEDS: THERAHONEY GEL 1.5 OZ TUBE TP SCH (08:44)
[2022-10-17] MEDS: MUPIROCIN OINT 2% 22 GM TUBE NS SCH ×2 (08:44→21:05)
--- NOTE | 2022-10-17 11:43 | NUR ---
covid-19 NASAL SWAb is collected and sent to lab.
--- NOTE | 2022-10-17 15:00 | NUR ---
RN note Contacted the recipient SNF for discharge. The staff said that they don't have bed for [facility] until Wednesday. Informed CAMPGROUND CARETAKER Lucas Gray. Also, as patient is absorbing her G-tube feeding well, to discontinue IVF. Done as ordered.
[2022-10-17] MEDS: MORPHINE SULFATE INJ 4 MG/ML DISP.SYRIN IV PRN (16:36)
--- NOTE | 2022-10-17 16:46 | NUR ---
RN note Noted that patient is persistently tachycardic. Did not suction much from oral cavity. Administered morphine and will keep observation of effect.
--- NOTE | 2022-10-17 19:15 | NUR ---
RN NOTE RECEIVED PT FOR CONTINUITY OF CARE. PATIENT NON VERBAL BUT OPEN HER EYES, IN N NO S/SX OF ACUTE DISTRESS AT THIS TIME; CURRENTLY ON QL OF 02 VIA NC; WITH 02 SAT >95% AT THIS TIME. WITH IV ACCESS PATENT, INTACT AND FLUSHING WELL. WITH PEG TUBE PATENT AND INTACT WITH NO FEEDING AT THIS TIME, WILL RESUME FEEDING AT 2200. WILL ENSURE SAFETY MEASURES WITHIN THE SHIFT. PATIENT BED ALARM IS ON. HEAD OF BED ELEVATED. BED IS LOCKED, IN LOWEST POSITION AND SIDE RAILS UP. CALL LIGHT WITHIN REACH OF THE PATIENT. APPLICABLE ISOLATION PRECAUTIONS IN PLACE. WILL CONTINUE TO MONITOR AND REASSESS FOR ANY CHANGES AND WILL CARRY OUT ANY ONGOING AND ACTIVE MD ORDER.
[2022-10-17] MEDS: GLUCERNA 1.2 1,000 ML BOTTLE GT SCH (22:01)
--- NOTE | 2022-10-17 22:01 | NUR ---
RN NOTE RESUMED FEEDING OF GLUCERNA 1.2 @70CC/HR. NO RESIDUAL AT THIS TIME. TUBE FEEDING PATENT AND INTACT.
[2022-10-18] VITALS: BP 110/78
[2022-10-18] MEDS: INSULIN REGULAR, HUMAN 100 UNIT/ML 3 ML VIAL SQ PRN ×5 (00:05→17:28)
--- NOTE | 2022-10-18 00:05 | NUR ---
RN NOTE ENDORSEMENT REPORT GIVEN TO LUIS WARREN FOR JOSE.
[2022-10-18] MEDS: ALBUTEROL FS 2.5 MG/3 ML VIAL.NEB NEB SCH ×6 (03:05→22:32)
[2022-10-18] MEDS: IPRATROPIUM NEB FS 0.5 MG/2.5 ML AMPUL.NEB NEB SCH ×6 (03:05→22:31)
[2022-10-18] MEDS: MORPHINE SULFATE INJ 4 MG/ML DISP.SYRIN IV PRN (03:38)
--- NOTE | 2022-10-18 03:46 | NUR ---
RN NOTE PRN MORPHINE GIVEN FOR PAIN NOTED PT WITH ELEVATED HR FACIAL GRIMACING AND RESTLESSNESS. TOLERATED WELL.
[2022-10-18 04:00] VITALS: BP 139/79
[2022-10-18] MEDS: BLOOD SUGAR DIAGNOSTIC 1 EACH STRIP IN SCH ×4 (05:36→23:15)
[2022-10-18 08:00] VITALS: BP 135/90
[2022-10-18] MEDS: methylPREDNISolone SOD SUCC 40 MG/ML VIAL IV SCH (08:02)
[2022-10-18] MEDS: MUPIROCIN OINT 2% 22 GM TUBE NS SCH ×2 (08:09→20:24)
[2022-10-18] MEDS: THERAHONEY GEL 1.5 OZ TUBE TP SCH (08:09)
[2022-10-18] MEDS: ACETAMINOPHEN 650 MG/20.3 ML UDC GT PRN ×2 (11:47→17:29)
[2022-10-18 12:00] VITALS: BP 135/74
[2022-10-18 16:00] VITALS: BP 125/64
--- NOTE | 2022-10-18 16:09 | NUR ---
WOOD PLANER NOTES Pt temperature is 100 degrees F. Cooling measures applied. CN aware.
[2022-10-18] MEDS: GLUCERNA 1.2 1,000 ML BOTTLE GT SCH (17:29)
--- NOTE | 2022-10-18 18:28 | NUR ---
INDUSTRIAL ENGINEERING PROFESSOR CLOSING NOTES All due meds and tx given as ordered. Pt tolerated everything well. All needs attended to. Pt is currently on 1L NC and tolerating it well. IV access on DANN midline patent and intact. HOB elevated to 30-45 degrees. Siderails up at all times x2. Bed at its lowest setting and locked for safety. Call light within reach. Will endorse to oncoming nurse.
[2022-10-18 20:00] VITALS: BP 121/66
--- NOTE | 2022-10-18 21:31 | NUR ---
DESIGN LEADER OPENING NOTES RECEIVED PT FOR CONTINUITY OF CARE. PATIENT NON VERBAL BUT OPEN HER EYES, IN N NO S/SX OF ACUTE DISTRESS AT THIS TIME; CURRENTLY ON 1L OF 02 VIA NC; WITH 02 SAT >95% AT THIS TIME. WITH IV ACCESS PATENT, INTACT AND FLUSHING WELL. WITH PEG TUBE PATENT AND INTACT WITH NO FEEDING AT THIS TIME, WILL RESUME FEEDING AT 2200. PATIENT BED ALARM IS ON. HEAD OF BED ELEVATED. BED IS LOCKED, IN LOWEST POSITION AND SIDE RAILS UP. CALL LIGHT WITHIN REACH OF THE PATIENT. APPLICABLE ISOLATION PRECAUTIONS IN PLACE. PLAN OF CARE CONTINUE.
[2022-10-19] VITALS: BP_SYST 115; BP_SYST 124; BP_DIAS 74; BP_DIAS 75
[2022-10-19] MEDS: ALBUTEROL FS 2.5 MG/3 ML VIAL.NEB NEB SCH ×5 (02:48→20:14)
[2022-10-19] MEDS: IPRATROPIUM NEB FS 0.5 MG/2.5 ML AMPUL.NEB NEB SCH ×5 (02:48→20:14)
[2022-10-19 04:00] VITALS: BP 124/80
--- NOTE | 2022-10-19 05:00 | NUR ---
NOTED PATIENT WITH FEVER, PRN TYLENOL GIVEN, COOLING MEASURES RENDERED, WILL RECHECK TEMPERATURE.
[2022-10-19] MEDS: BLOOD SUGAR DIAGNOSTIC 1 EACH STRIP IN SCH ×4 (05:04→23:29)
[2022-10-19] MEDS: ACETAMINOPHEN 650 MG/20.3 ML UDC GT PRN ×2 (05:08→15:47)
[2022-10-19] MEDS: INSULIN REGULAR, HUMAN 100 UNIT/ML 3 ML VIAL SQ PRN ×3 (05:09→17:57)
--- NOTE | 2022-10-19 06:11 | NUR ---
HEMATOLOGY TECHNOLOGIST CLOSING NOTES PATIENT NON VERBAL BUT OPEN HER EYES, IN N NO S/SX OF ACUTE DISTRESS AT THIS TIME; CURRENTLY ON 1L OF 02 VIA NC; WITH 02 SAT >95% AT THIS TIME. WITH DANN MIDLINE NOTED PATENT, INTACT AND FLUSHING WELL, SALINE LOCK. WITH PEG TUBE PATENT AND INTACT WITH FEEDING, TOLERATING WELL, NO RESIDUAL NOTED. PATIENT BED ALARM IS ON. HEAD OF BED ELEVATED. BED IS LOCKED, IN LOWEST POSITION AND SIDE RAILS UP. CALL LIGHT WITHIN REACH OF THE PATIENT. APPLICABLE ISOLATION PRECAUTIONS IN PLACE.WILL ENDORSE TO NIGHT NURSE FOR JOSE.
--- NOTE | 2022-10-19 06:43 | NUR ---
RECHECK TEMP. 99.0 ORALLY. WILL ENDORSE TO AM NURSE FOR JOSE.
--- NOTE | 2022-10-19 07:10 | NUR ---
JEWEL SORTER OPENING NOTES Received pt awake in bed. Non verbal and unable to follow command. Pt is on comfort measures currently on 1L NC and tolerating it well. No signs of pain or discomfort at this time. IV access on DANN midline patent and intact. HOB elevated to 30-45 degrees. Siderails up at all times. Call light within reach. Will continue to monitor.
[2022-10-19 08:00] VITALS: BP 130/80
[2022-10-19] MEDS: methylPREDNISolone SOD SUCC 40 MG/ML VIAL IV SCH (08:12)
[2022-10-19] MEDS: THERAHONEY GEL 1.5 OZ TUBE TP SCH (09:00)
[2022-10-19] MEDS: MUPIROCIN OINT 2% 22 GM TUBE NS SCH ×2 (09:00→21:23)
[2022-10-19] MEDS: LORAZEPAM INJ 2 MG/ML VIAL IV PRN ×2 (11:01→15:47)
[2022-10-19 12:00] VITALS: BP 140/79
[2022-10-19] MEDS: MORPHINE SULFATE INJ 4 MG/ML DISP.SYRIN IV PRN (12:31)
[2022-10-19] MEDS: PIPERACILLIN /TAZOBACTAM 3.375 G in IV D5W 50 ML IV SCH ×2 (13:27→21:22)
[2022-10-19] MEDS: GLUCERNA 1.2 1,000 ML BOTTLE GT SCH (13:47)
[2022-10-19] MEDS ORDERED: PIPE3.379 IV (14:41)
--- NOTE | 2022-10-19 15:20 | NUR ---
SS Note: GRACE received call from pt.'s son, Leonardo Guerrero [phone]. Leonardo is requesting paperwork for FMLA to be completed by pt.'s attending physician. Per Leonardo, [facility] and he wants FMLA paperwork signed so he may have some allotted time off work to assist the pt. during this time. GRACE referred Leonardo to the pt.'s PCP from [facility] as they can more appropriately recommend time off family would need for hospice pt. Leonardo was agreeable to plan.
[2022-10-19 16:00] VITALS: BP 134/70
--- NOTE | 2022-10-19 17:48 | NUR ---
CARBON COATING MACHINE OPERATOR NOTES Pt was scheduled for discharge but upon EMT arrival pt respirations were 41 and o2 saturation was 91% on 3L NC. Dr. Lucas Gray notified and he cancelled the discharge.
--- NOTE | 2022-10-19 18:25 | NUR ---
LIEUTENANT BALLISTICS CLOSING NOTES All due meds and tx given as ordered. Pt tolerated everything well. All needs attended to. Pt is currently on 5L NC with 02 saturation at 93%. Respirations are eleavted at 41. MD aware. IV access on DANN midline patent and intact. HOB elevated to 30-45 degrees. Siderails up at all times x2. Bed at its lowest setting and locked for safety. Call light within reach. Will endorse to oncoming nurse.
[2022-10-20] MEDS: IPRATROPIUM NEB FS 0.5 MG/2.5 ML AMPUL.NEB NEB SCH ×6 (01:20→19:30)
[2022-10-20] MEDS: ALBUTEROL FS 2.5 MG/3 ML VIAL.NEB NEB SCH ×6 (01:20→19:30)
[2022-10-20 01:42] VITALS: BP 128/77
[2022-10-20 06:33] VITALS: BP 141/81
[2022-10-20] MEDS: BLOOD SUGAR DIAGNOSTIC 1 EACH STRIP IN SCH ×3 (06:40→17:32)
[2022-10-20] MEDS: PIPERACILLIN /TAZOBACTAM 3.375 G in IV D5W 50 ML IV SCH ×2 (06:40→12:12)
--- NOTE | 2022-10-20 07:18 | NUR ---
BOOM WORKER OPENING NOTES; RECEIVED PATIENT IN BED ASLEEP BUT EASILY AROUSES TO VOICE AND SOUND. PATIENT IS ALERT BUT NON VERBAL. NO SEVERE RESPIRATORY DISTRESS NOTED AT THIS TIME. ON OXYGEN @ 5L/MIN VIA N/C WITH OXYGEN SATURATION OF 96%. ON ST WITH HR OF 119 PER TELE MONITOR. IV ACCESS ON RIGHT UPPER ARM MIDLINE, PATENT, FLUSHES WELL AND NO S/S INFILTRATION NOTED. G-TUBE PATENT, IN PLACE WITH 2O ML OF RESIDUAL RUNNING WITH GLUCERNA 1.2 @ 70 ML/HR X 20 HOURS. HOB KEPT ELEVATED AT ALL TIMES. JACKSON CATHETER IN PLACE DRAINING VIA GRAVITY WITH YELLOW COLORED URINE, NO HEMATURIA AND NO SEDIMENTATION NOTED. ALL SAFETY MEASURES IN PLACE. BED LOCKED AND IN LOWEST POSITION. CALL LIGHT WITHIN REACH. WILL CONTINUE TO MONITOR PATIENT THROUGHOUT SHIFT.
[2022-10-20 08:00] VITALS: BP 133/85
[2022-10-20] MEDS: methylPREDNISolone SOD SUCC 40 MG/ML VIAL IV SCH (09:08)
[2022-10-20] MEDS: THERAHONEY GEL 1.5 OZ TUBE TP SCH (09:21)
[2022-10-20] MEDS: MUPIROCIN OINT 2% 22 GM TUBE NS SCH (09:21)
--- NOTE | 2022-10-20 11:30 | NUR ---
DR. GONZÁLES CAME BY AND VISITED THE PATIENT, DOCTOR SPOKE WITH THE FAMILY AT BEDSIDE. NOTED WITH OXYGEN @ 6L/MIN VIA N/C AND PLACED THE PATIENT ON 5L/MIN ORDERED, OXYGEN SATURATION OF 98%. PATIENT WITH HR OF 28. WILL CONTINUE TO MONITOR PATIENT. HOB KEPT ELEVATED.
[2022-10-20] MEDS: INSULIN REGULAR, HUMAN 100 UNIT/ML 3 ML VIAL SQ PRN ×2 (11:45→17:32)
[2022-10-20 12:00] VITALS: BP 156/94
[2022-10-20] MEDS: LORAZEPAM INJ 2 MG/ML VIAL IV PRN ×3 (12:11→17:58)
--- NOTE | 2022-10-20 12:11 | NUR ---
PATIENT NOTED TO BE BREATHING FAST, CHECKED RESPIRATION RATE AND IT WAS 34, PATIENT ON ST ON TELE MONITOR WITH HR OF 115. PATIENT ON 5L/MIN VIA N/C WITH OXYGEN SATURATION OF 96%. MED ATIVAN GIVEN PRN. FAMILY AT BEDSIDE. WILL CONTINUE TO MONITOR PATIENT
--- NOTE | 2022-10-20 12:45 | NUR ---
PATIENT NOTED TO HAVE RESPIRATION RATE OF 28. STILL ON OXYGEN @ 5L/MIN VIA N/C WITH OXYGEN SATURATION OF 98%, PATIENT TOLERATING IT WELL. HOB KEPT ELEVATED AND REPOSITIONED FOR COMFORT.
[2022-10-20 14:25] VITALS: BP 127/75
--- NOTE | 2022-10-20 14:25 | NUR ---
NURSE IBETH INFORMED OF RECENT PATIENT'S V/S BP 127/75, OXYGEN SATURATION OF 98% ON 5 L/MIN VIA N/C, TEMP 97.7, RESPIRATION RATE 34, PATIENT IS ON ST WITH HR OF 115 PER TELE MONITOR
--- NOTE | 2022-10-20 14:25 | NUR ---
CALLED [facility] @ , SPOKE WITH LUIS CRISTINA AND GAVE FULL REPORT FOR THE PATIENT. INFORMED OF EXPECTED ORACLE EBS DEVELOPER FROM [facility] @ 1500. AGREED AND UNDERSTOOD. FAMILY MEMBERS INFORMED OF DISCHARGE ORDERS TO THE FACILITY
[2022-10-20] MEDS: MORPHINE SULFATE INJ 4 MG/ML DISP.SYRIN IV PRN (15:04)
[2022-10-20 16:00] VITALS: BP 108/78
--- NOTE | 2022-10-20 18:23 | NUR ---
[facility] CAME BY HERE TO FLANGING OPERATOR THE PATIENT PATIENT IS STILL ON OXYGEN @ 5L/MIN VIA N/C WITH OXYGEN SATURATION OF 96%. PATIENT HAS RESPIRATION RATE OF 30. ON ST WITH HR OF 115 PER TELE MONITOR. GAVE FULL REPORT TO RODRÍGUEZ MALHOTRA. DISCHARGE PAPERWORK HANDED TO THE EMT PERSONNEL. LEFT IV MIDLINE DUE TO PATIENT WILL BE HAVING IV ANTIBIOTIC AT THE FACILITY. REMOVED NAME BAND AND TELE MONITOR. PATIENT LEFT IN NO ACUTE DISTRESS NOTED.
== END 2022-10-20 18:23 | disposition hospice, home (50) | DRG 710 ==
LOC: ER 23:01 → TELE-TD 10-06 01:31 → TELE1 10-08 10:19 → UNDODISIN 10-21
PROVIDERS: ADMIT Nurse Practitioner Family; ATTEND Student in an Organized Health Care Education/Training Program
PROC: 5A09457 Assistance with Respiratory Ventilation, 24-96 Consecutive Hours, Continuous Positive Airway Pressure (ICD-10-PCS; principal; 2022-10-06)
PROC: 05H933Z Insertion of Infusion Device into Right Brachial Vein, Percutaneous Approach (ICD-10-PCS; 2022-10-06)
PROC: 0KBN0ZZ Excision of Right Hip Muscle, Open Approach (ICD-10-PCS; 2022-10-07)
PROC: 0KBP0ZZ Excision of Left Hip Muscle, Open Approach (ICD-10-PCS; 2022-10-07)
PROC: 05H933Z Insertion of Infusion Device into Right Brachial Vein, Percutaneous Approach (ICD-10-PCS; 2022-10-17)
DX: A41.9 Sepsis, unspecified organism (principal); J96.01 Acute respiratory failure with hypoxia; N17.0 Acute kidney failure with tubular necrosis; R65.21 Severe sepsis with septic shock; J69.0 Pneumonitis due to inhalation of food and vomit; G92.8 Other toxic encephalopathy; J15.6 Pneumonia due to other Gram-negative bacteria; E87.20 Acidosis, unspecified; L89.154 Pressure ulcer of sacral region, stage 4; E11.22 Type 2 diabetes mellitus with diabetic chronic kidney disease; D63.8 Anemia in other chronic diseases classified elsewhere; I69.354 Hemiplegia and hemiparesis following cerebral infarction affecting left non-dominant side; J44.0 Chronic obstructive pulmonary disease with (acute) lower respiratory infection; J44.1 Chronic obstructive pulmonary disease with (acute) exacerbation; E86.0 Dehydration; D50.9 Iron deficiency anemia, unspecified; N39.0 Urinary tract infection, site not specified; I12.9 Hypertensive chronic kidney disease with stage 1 through stage 4 chronic kidney disease, or unspecified chronic kidney disease; N18.9 Chronic kidney disease, unspecified; Z20.822 Contact with and (suspected) exposure to COVID-19; Z66 Do not resuscitate; Z51.5 Encounter for palliative care; K86.1 Other chronic pancreatitis; K21.9 Gastro-esophageal reflux disease without esophagitis; Z79.51 Long term (current) use of inhaled steroids; Z79.02 Long term (current) use of antithrombotics/antiplatelets; Z79.899 Other long term (current) drug therapy; G93.0 Cerebral cysts; E88.09 Other disorders of plasma-protein metabolism, not elsewhere classified; Y95 Nosocomial condition; E87.0 Hyperosmolality and hypernatremia; F20.9 Schizophrenia, unspecified; Z86.16 Personal history of COVID-19; Z93.1 Gastrostomy status; E87.5 Hyperkalemia; E87.6 Hypokalemia
CPT/HCPCS: 31720; 36410; 36415; 36600; 71045-TC; 76770-TC; 80048-TC; 80053-TC; 80076-TC; 80202-TC; 81001; 82570-TC; 82728-TC; 82803-TC; 82962-TC; 83540-TC; 83605-TC; 83735-TC; 83880; 84100-TC; 84300-TC; 84443-TC; 84484-TC; 85025-TC; 86850-TC; 87040-TC; 87081-TC; 87086-TC; 94660; 94760-TC; 94799-TC; 99082-TC; A6403; A6407; C9803; G0378; J0692; J1644; J1815; J2060; J2270; J2543; J2920; J2930; J3370; J3490; J7030; J7050; J7060; J7120